=== PATIENT | female | born 1965 | race Caucasian/White ===

== ENCOUNTER 2025-09-23 13:23 | Inpatient (IN) | payer BC, SELFPAY ==
[2025-09-23 09:54] VITALS: BP 124/91
[2025-09-23 10:51] LABS: Hematocrit 46.2 % (37.0-47.0); Hemoglobin 15.9 g/dL (12.0-16.0); Mean Corp Hgb Conc. 34.4 g/dL (33.0-37.0); Mean Corpuscular Volume 90.4 fL (81.0-99.0); Nucleated Red Blood Cells % 0 %; Platelet Count 310 10^3/uL (130-400); Red Cell Dist. Width 13.5 % (11.5-14.5)
[2025-09-23 10:54] LABS: Urine Character Slightly Cloudy (Clear)
[2025-09-23 11:08] LABS: ALT (SGPT) 11 U/L (0-35); AST (SGOT) 13 U/L (14-36); Albumin 4.2 g/dl (3.5-5.0); Alkaline Phosphatase 111 U/L (38-126); Blood Urea Nitrogen 19 mg/dl (7-17); Calcium 10.0 mg/dl (8.4-10.2); Carbon Dioxide 22 mmol/L (22-30); Chloride 105 mmol/L (98-107); Glucose 120 mg/dl (70-99); Lipase 43 U/L (23-300); Potassium 4.2 mmol/L (3.5-5.1); Sodium 139 mmol/L (135-145); Total Protein 7.6 g/dl (6.3-8.2); eGFR > 60.00
[2025-09-23] MEDS: ZOFRAN 4 MG IV ×2 (11:17→19:46)
[2025-09-23] MEDS: NSS 1000 IV ×2 (11:17→15:07)
[2025-09-23] MEDS: MORPHINE SULFATE 4 MG IV (11:17)
--- NOTE | 2025-09-23 11:24 | ED.GENMED ---
History of Present Illness
General
Chief Complaint: Abdominal Pain
Time Seen by Provider: 09/23/25 10:51
History of Present Illness
History of Present Illness:
60-year-old female without significant past medical history presenting to the emergency department for abdominal pain. Patient reports symptoms for the past 5 days, with lower abdominal discomfort. Also notes some nausea and vomiting, as well as
loose stools. Recently started taking magnesium and stools have been orange in color, unsure if color is related to the magnesium. Reports history of diverticulitis, which occurred a year ago. Reports that symptoms feel similar to that episode,
however now worse. Denies any fever. Denies any history of abdominal surgeries. Denies additional acute medical complaints
Past History
Past History
ED Past Medical History: None; Negative CAD or CHF
Social History
Personal:
Living: with family
Phy Exam
Physical Exam
Physical Exam:
General: Well-appearing, no clinical signs of dehydration, nontoxic and in no acute distress
HEENT: protecting airway
Neck: appears supple
CV: Normal heart rate, regular rhythm
Resp: No accessory muscle use, no increased work of breathing, lungs clear to auscultation bilaterally
Abd: No distention, moderate discomfort on palpation to the lower abdomen with voluntary guarding, no rebound
Extremities: No deformities, no swelling
Neuro: alert, no focal neurologic deficit
: deferred
Rectal: deferred
Psych: Normal affect
Skin: Intact
Course
Orders/Labs/Results
Orders:
Orders
09/23/25 10:06
Complete Blood Count/With Diff Urgent
Comprehensive Metabolic Panel Urgent
Lipase Urgent
09/23/25 10:18
Urinalysis Reflex To Culture Urgent
Date Specimen was Collected: 09/23/25
Time Specimen was Collected: 09:59
Urine Microscopic Reflex Cult Urgent
Urine Culture Urgent
LIDIA Source: U
Specimen Description:
Date Specimen was Collected: 09/23/25
Time Specimen was Collected: 09:59
09/23/25 11:08
CT Abd/pelvis W Iv Cont Urgent
Comment:
Reason For Exam: lower abd pain, hx diverticulitis
0.9% Sodium Chloride 1000 ml [Nss] 1,000 ml IV BOLUS
Morphine Sulfate 4 mg IV NOW STA
Ondansetron Injectable [Zofran] 4 mg IV NOW STA
09/23/25 11:15
Lactic Acid Q4H
Comment: CANCEL 2nd LACTIC ACID IF 1st LACTIC ACID IS LESS THAN 2
09/23/25 12:46
CefTRIAXone [Rocephin] 1,000 mg IV NOW STA
MetroNIDAZOLE 500 MG/100 ML [Flagyl 500 mg] 100 ml IV NOW
09/23/25 15:15
Lactic Acid Q4H
Comment: CANCEL 2nd LACTIC ACID IF 1st LACTIC ACID IS LESS THAN 2
Abnormal Lab Results
09/23/25 09/23/25
10:06 10:18
WBC 19.4 H 10^3/uL
(4.8-10.8)
MCH 31.1 H pg
(27.0-31.0)
MPV 11.6 H fL
(7.4-10.4)
Abs Immat Gran (auto) 0.2 H 10^3/uL
(0-0.05)
Absolute Neuts (auto) 16.5 H 10^3/uL
(1.4-6.5)
Absolute Monos (auto) 1.3 H 10^3/uL
(0.1-0.6)
Immature Gran % 0.8 H %
(0-0.5)
Neutrophils % 85.1 H %
(42.2-75.2)
Lymphocytes % 6.7 L %
(20.5-51.1)
BUN 19 H mg/dl
(7-17)
Glucose 120 H mg/dl
(70-99)
AST 13 L U/L
(14-36)
Urine Ketones 3+ A
(Negative)
Ur Occult Blood Reflex 3+ A
(Negative)
Leukocyte Esterase Rfl 1+ A
(Negative)
Urine RBC 3-6 A /HPF
(0-2)
Urine Bacteria (Reflex) Many A
(Negative)
Urine Albumin (Reflex) 3+ A
(Neg - Trace)
09/23/25 10:06
09/23/25 10:06
Vital Signs
Initial and Last Documented VS:
Initial Vital Signs
Temp Pulse Resp BP Pulse Ox
97.7 F 106 20 124/91 96
09/23/25 09:54 09/23/25 09:54 09/23/25 09:54 09/23/25 09:54 09/23/25 09:54
Last Documented Vital Signs
Temp Pulse Resp BP Pulse Ox
97.7 F 94 20 139/84 96
09/23/25 09:54 09/23/25 11:25 09/23/25 11:25 09/23/25 11:25 09/23/25 11:29
MDM/Problems Addressed
MDM/Problems Addressed:
60-year-old female with prior history of diverticulitis presenting for lower abdominal pain. Vital signs on arrival are significant for mild tachycardia.
On exam, patient is in no acute distress, however does appear uncomfortable secondary to pain. Generalized tenderness to the lower abdomen with voluntary guarding, no rebound. Concern for acute diverticulitis, given prior history, with possible
perforation. Bowel obstruction is also consideration. Given discomfort, will start on morphine. Plan for CT imaging. Labs obtained prior to my assessment, with moderate leukocytosis. Will add on lactic acid.
12:50 -lactate is normal. CT is consistent with perforated diverticulitis. Starting broad-spectrum antibiotics. General surgery made aware, recommending hospital admission and they will see in consult. Will keep n.p.o.
*Pulse Oximetry
SaO2: 96
Oxygen Mode of Delivery: Room air
Patient hypoxic: no
*Critical Care Note
Total Time (30-74mins, 75-104mins- exclusive of procedures): Not Applicable
ED Attending Note
-
Portions of this chart may have been created with voice recognition software.� Occasional wrong word or��sound alike� substitutions may have occurred due to the inherent limitations of voice recognition software.
Discharge Plan
Departure
Prescriptions:
No Action
Metamucil Packet
1 packet PO DAILY
Referrals:
Tashi Restrepo DO [Family Provider, Family Practice]
Interventions
Interventions:
*General Assessment Last Done: 09/23/25 09:54
*Neglect/Abuse Screening Last Done: 09/23/25 11:26
*ED COVID-19 Vaccine History Last Done: 09/23/25 11:26
*ED Influenza Vaccine History Last Done: 09/23/25 11:26
[facility] Fall Risk Assessment Tool Last Done: 09/23/25 11:26
*Risk Screen - Suicide (C-SSRS) Last Done: 09/23/25 11:26
WX-Aqfbny-Irnfjhjnop Assessment Last Done: 09/23/25 11:28
Discharge Date and Time
Print Language: MALTESE
[2025-09-23 11:25] VITALS: BP 139/84
[2025-09-23 11:26] VITALS: BMI 42.4
[2025-09-23 11:29] LABS: Urine Squamous Cell >30 /LPF (Few)
[2025-09-23 11:30] LABS: Urine Urothelial Cell 0-2 /LPF (FEW)
--- NOTE | 2025-09-23 12:56 | HPS.HSE ---
Family Physician
-
Family Physician: Tashi Restrepo
Chief Complaint
-
Abdominal pain associate with nausea vomiting, loose stool
History of Present Illness
60-year-old female with past medical history for diverticulitis presented to us with lower abdominal pain for past 5 days. Also notes some nausea and vomiting, as well as loose stools. patient stated poor oral intake. Patient had a temp of 100.4.
she complained of chills. Denied headache, dizzy or syncope. Patient denied chest pain or short of breath. She denied trouble urinating. Denied dysuria hematuria.
CT with perforated diverticulitis. Patient received a dose of ceftriaxone, Flagyl, morphine, normal saline, Zofran in the ER. Admitting for further management
Medical History
Past Medical History
Past Medical History: Reports Other
Additional Past Medical History:
Diverticulitis, kidney stone
Past Surgical History: Reports None
Social History
Tobacco: Smoker (Half a pack a day)
Alcohol: Occasional
Drug: None
Living: With Family
Family History
Family History: Not pertinent
Allergies / Home Medications
Allergies reflects when Allergies were last updated in [employer].
Home Medications with original date entered in [employer]
Allergy/Medication List:
Allergies
Allergy/AdvReac Type Severity Reaction Status Date / Time
Penicillins Allergy Unknown Verified 09/23/25 09:54
sulfamethoxazole (From Allergy Rash Verified 09/23/25 09:54
Bactrim)
trimethoprim (From Bactrim) Allergy Rash Verified 09/23/25 09:54
Home Medications
psyllium 1 packet PO DAILY 09/23/25
Review of Systems
-
Constitutional: Reports No Symptoms
EENT: Reports No Symptoms
Respiratory: Reports No Symptoms
Cardiac: Reports No Symptoms
Abdomen/GI: Reports Abdominal Pain, Nausea, Vomiting and Diarrhea
: Reports No Symptoms
Musculoskeletal: Reports No Symptoms
Skin: Reports No Symptoms
Neurological: Reports No Symptoms
Endocrine: Reports No Symptoms
Hematologic/Lymphatic: Reports No Symptoms
Psych: Reports No Symptoms
Physical Exam
Vital Signs
Vital Signs
Temp Pulse Resp BP Pulse Ox
97.7 F 94 20 139/84 96
09/23/25 09:54 09/23/25 11:25 09/23/25 11:25 09/23/25 11:25 09/23/25 11:29
Physical Exam
General: Well Developed, Well Nourished and No Apparent Distress
HEENT: NormoCephalic, Moist mucous membranes and Atraumatic
Respiratory: Clear
Cardiac: S1/S2 and Regular Rhythm; No Murmur or Rub
GI: Soft, Non Tender, Non Distended and Normal Bowel Sounds; No Organomegaly
Rectal: Deferred by Provider
Musculoskeletal: No Clubbing, No Cyanosis and No Edema
Skin: No Rash
Neuro: AO x 3 and Nonfocal/grossly intact
Psych: Calm
Laboratory Results
-
09/23/25 10:06
09/23/25 10:06
Laboratory Results
Lactic Acid 1.0 mmol/L (0.7-2.0) 09/23/25 11:15
Total Bilirubin 0.8 mg/dl (0.2-1.3) 09/23/25 10:06
AST 13 U/L (14-36) L 09/23/25 10:06
ALT 11 U/L (0-35) 09/23/25 10:06
Alkaline Phosphatase 111 U/L (38-126) 09/23/25 10:06
Lipase 43 U/L (23-300) 09/23/25 10:06
Data Reviewed
-
CT Scan: Report Reviewed by me
Lab Data: Labs Reviewed by me
Impression/Plan
-
# Abdominal pain associate with nausea, vomiting, loose stools secondary to perforated sigmoid diverticulitis
- WBCs 19
- Flagyl and ceftriaxone continued
- General Surgery consulted
- Keep patient n.p.o.
- IV fluids continue hydration
- IV Dilaudid as needed for pain
- IV Zofran as needed for nausea vomiting
- CT abdomen pelvis with impression of Findings of acute perforated sigmoid diverticulitis with small volume free air underlying the right hemidiaphragm. Additionally extensive inflammatory changes along the sigmoid colon as well as a bilobed gas
and fluid containing collection measuring approximately 4.9 x 2.6 cm along the sigmoid colon extending towards the left pelvis/adnexa.There is a 9 mm complex cyst along the lower pole the right kidney which appears increased in size from prior. A
follow-up nonemergent renal ultrasound should BE considered.
#DVT prophylaxis
- SCDs
# CODE STATUS
-Full code
--- NOTE | 2025-09-23 13:02 | W.PN.UPDATE ---
Update Note
Progress Note Update
This note serves as an addendum to the H&P by coating technician ALEXIS�
Yolanda KISHORE�
HPI
6F HX uncomplicated diverticulitis 1 yr ago, no other chronic medical history seen at ER
- pw abdominal pain since Thursday with some nausea, vomiting, loose stools.
- No prior surgical history.
- stable VSS
pw generalized lower tenderness
- WBC is 19, normal lactate.
CT shows perforated sigmoid diverticulitis.
Has PCN allergy
Relevant VS
Temp Pulse Resp BP Pulse Ox
97.7 F 94 20 139/84 96
09/23/25 09:54 09/23/25 11:25 09/23/25 11:25 09/23/25 11:25 09/23/25 11:29
PE
Gen: Class III obesity , comfortable
HEENT: anicteric
Neck: supple
Lungs: CTA
Cor: RRR S1 S2
Abdomen:� obese , diffusely tender to palapaition
PRODUCT SAFETY LEAD: AAO3 , NFND
MS: no edema
Psych:Nl mood and affect
Relevant Data
09/23/25 09/23/25 09/23/25
10:06 10:18 11:15
WBC 19.4 H
Hgb 15.9
Plt Count 310
Carbon Dioxide 22
Creatinine 0.7
eGFR > 60.00
Lactic Acid 1.0
Urine Clarity Slightly cloudy
Urine RBC 3-6 A
Urine WBC (Reflex) 3-5
Ur Squamous Epith Cells >30
Urine Bacteria (Reflex) Many A
CT AP w IV contrast
- Findings of acute perforated sigmoid diverticulitis with small volume free air underlying the right hemidiaphragm.
- Additionally extensive inflammatory changes along the sigmoid colon as well as a bilobed gas and fluid containing collection measuring approximately 4.9 x 2.6 cm along the sigmoid colon extending towards the left pelvis/adnexa.
- There is a 9 mm complex cyst along the lower pole the right kidney which appears increased in size from prior. A follow-up nonemergent renal ultrasound should BE considered.
ASSESSMENT & PLAN
Acute perforated sigmoid diverticulitis
Collection 4.9 x 2.6 cm along the sigmoid colon extending towards the left pelvis/adnexa.
HX PCN allergy ( rash ) Bactrim ( tight throat )
- NPO and IVF
- IV LVQ in place of IV CFTX plus IV Flagyl
- PRN analgesia
- EKG to monitor QTc
- GS consulted
Class III Obesity
DVT Px: SCD
Full code
IP MS
[2025-09-23 13:11] VITALS: BP 140/86
[2025-09-23] MEDS: FLAGYL 500 MG 100 IV ×2 (13:13→19:46)
[2025-09-23] MEDS: ROCEPHIN 1000 MG IV (13:13)
--- NOTE | 2025-09-23 15:06 | CON.CRS ---
Addendum entered and electronically signed by Haider Barraza MD 09/23/25 18:05:
Patient seen and examined independently of nurse practitioner. Agree with documented consultation note with additions noted here.
HPI: 60-year-old female with previous history of diverticulitis in April 2023 and mild recurrent flare since then who was in her usual baseline state of health until 4 to 5 days ago when she began developing lower abdominal pain. She had associated
anorexia and began fasting other than liquids. Her pain was relatively stable for the first 48 hours but 2 days ago it acutely worsened and became more generalized in nature as well as localizing more severe in the left lower quadrant and
suprapubic area. She has continued with anorexia and even had intermittent vomiting. She has been passing some loose stools with the last bowel movement yesterday. Minimal flatus today and no further bowel movements.
Patient reports some relief with pain medicine administered in the emergency department but required a second dose after being transported to her hospital room. She is currently reporting discomfort more than pain. Continued anorexia. No vomiting
today.
Past medical history otherwise only notable for history of kidney stone and obesity with BMI of 37
No past abdominal surgical history. No prior history of colonoscopy.
AF -hypertension, low-grade sinus tachycardia
NAD AAO x 3 pleasant and participatory for history taking, generally appears comfortable during our conversation and able to move in bed for examination
ABD: Soft, obese, no significant distention, there is generalized tenderness but guarding/rebound on palpation is only present in the suprapubic and left lower quadrant region. There is no significant percussion tenderness. Palpation in the upper
abdomen with referred pain to the left lower quadrant and suprapubic area.
CT abdomen/pelvis images personally reviewed as well as radiologist report. Sigmoid wall thickening with associated inflammatory changes. Extraluminal air adjacent to the mid sigmoid colon and left ovary as well as left side of the uterus. A few
isolated small foci of extraluminal air in the right subdiaphragmatic space.
Assessment/plan: 60-year-old female with sigmoid diverticulitis complicated by perforation and localized peritonitis.
Reviewed with patient indications for consideration of urgent operative intervention versus close monitoring with supportive care, IV antibiotics and serial abdominal examinations understanding that if there is any progression that surgery would
more definitively be necessary. We discussed the risks and benefits of both approaches. After our discussions we will continue with current medical supportive care with the understanding of the low threshold to potentially need surgical
intervention.
Will follow
Continue Levaquin Flagyl
Repeat labs tomorrow morning
Original Note:
Consultation
-
Date/Time Consultation Performed: 09/23/25 1500
Medical History
-
Chief Complaint: abdominal pain
History of Present Illness:
This is a 60 yo female with a h/o diverticulitis in April of 2023 which was treated with ABX by the ED who presents with similar pain x 4-5 days. She notes that since her prior attack, she has had 4 episodes of mild but similar pain which was self
limiting and resolved without antibiotics. She has had no prior colonoscopies. She notes that since onset of symptoms, she has had heartburn and belching and did have a few episodes of bilious emesis proceeded by nausea. She has been eating and
drinking very little and was not urinating much at home. She has felt chills and sweats for the last 3 days and did note a fever 2 days ago of just over 100. She has been passing gas and some loose stools/material rectally. She notes pain improved
after analgesics in the ED and was able to ambulate to the bathroom to void. Initially she felt her pain was everywhere but since receiving analgesics, it's now more localized to the mid to left lower abdomen. On exam, there is bilateral lower
quadrant tenderness and suprapubic tenderness present.
Past Medical History
Past Medical History: Diverticulitis and Other (renal stone, morbid obesity)
Past Surgical History: Other (breast lumpectomy (benign))
Social History
Tobacco: Smoker (10/08-10/06 ppd)
Alcohol: Occasional
Living: With Family
Family History
Family History: Reviewed & Not Pertinent and Cancer (denies colon ca history)
Allergies / Home Medications
Allergy/AdvReac Type Severity Reaction Status Date / Time
Penicillins Allergy Unknown Verified 09/23/25 09:54
sulfamethoxazole (From Allergy Rash Verified 09/23/25 09:54
Bactrim)
trimethoprim (From Bactrim) Allergy Rash Verified 09/23/25 09:54
�Medication �Instructions �Recorded �Confirmed �Type
psyllium 1 packet PO DAILY 09/23/25 09/23/25 History
Review of Systems
-
History Source: Patient
All other systems: Negative unless noted
A 10 point review of systems was completed, and was negative except as per HPI.
Physical Exam
Vital Signs
Temp 97.7 F 09/23/25 09:54
Pulse 89 09/23/25 13:11
Resp Rate 18 09/23/25 13:11
Blood pressure 140/86 09/23/25 13:11
SaO2 95 09/23/25 13:11
09/22/25 09/23/25 09/24/25
06:59 06:59 06:59
Actual Weight 105 kg
Body Mass Index (BMI) 42.4
Lab Results / Allergies
09/23/25 10:06
09/23/25 10:06
WBC 19.4 10^3/uL (4.8-10.8) H 09/23/25 10:06
Hgb 15.9 g/dL (12.0-16.0) 09/23/25 10:06
Hct 46.2 % (37.0-47.0) 09/23/25 10:06
Plt Count 310 10^3/uL (130-400) 09/23/25 10:06
Abs Immat Gran (auto) 0.2 10^3/uL (0-0.05) H 09/23/25 10:06
Neutrophils % 85.1 % (42.2-75.2) H 09/23/25 10:06
Allergy/AdvReac Type Severity Reaction Status Date / Time
Penicillins Allergy Unknown Verified 09/23/25 09:54
sulfamethoxazole (From Allergy Rash Verified 09/23/25 09:54
Bactrim)
trimethoprim (From Bactrim) Allergy Rash Verified 09/23/25 09:54
Physical Exam
General: Other (flushed, rubbing abdomen but able to ambulate to bathroom)
HEENT: Normocephalic and Other (dry mm)
GI: Soft, Tender (significant to BLLQ, no rebound/rigidity/guarding) and Distended (mild)
Skin: Warm and Other (flushed)
Neuro: Awake, Alert and AO x 3
Psych: Calm
Data Reviewed
-
CT Scan: Image Personally Visualized and interpreted, Report Reviewed by me, Discussed with Physician and Discussed with Patient
Labs: Labs Reviewed by me, Discussed with Physician and Discussed with Patient
Old Records: Reviewed
Assessment / Plan
-
60 yo female with a h/o diverticulitis and no prior colonoscopy presenting through the ED with 4-5 days of abdominal pain with poor appetite and 3 days of subjective fevers, dyspepsia and nausea with occasional vomiting. Afebrile in the ED, no
tachycardia, BP elevated. Leukocytosis with WBC of 19.4. Lactic acid normal. Bun/Cr ratio consistent with mild dehydration. CT imaging consistent with acute diverticulitis with perforation. There is a small amount of air at the right hemidiaphragm.
Inflammatory changes present along the sigmoid colon with collection of gas/fluid 4.9x2.6 along the sigmoid colon near the left adnexa. On exam, she has significant BLLQ tenderness without rebound/rigidity/guarding.
Plan:
Keep NPO for bowel rest
C/W ABX with levo/Flagyl
IVF while NPO
Medical management as per primary team
Discussed that emergent surgery would likely entail exploratory laparotomy and likely a colostomy. Given current exam, VS and labs, will hold off on emergent surgery at this time but will follow closely as she may require this admission if no
improvement. Reached out to IR provider harmonica maker to review imaging and determine if collection near sigmoid colon would be amenable to IR drainage.
[2025-09-23 15:09] VITALS: BP 157/83
--- NOTE | 2025-09-23 15:30 | CM ---
Chart reviewed and spoke with pt at ED bedside
Lives with spouse, dtr and 3 yo grandtr 2 [address]
Independent with ADLs and ambulation
no DME
PCP T[facility] in [place]
no hx of VN nor SNF
DCP is to go home
CM will continue to follow up for any dcp needs
[2025-09-23] MEDS: DILAUDID 0.5 MG IV (16:02)
[2025-09-23 16:05] VITALS: BP 176/103; BMI 37.0
[2025-09-23] MEDS: LEVAQUIN 150 IV (16:17)
[2025-09-23] MEDS: DILAUDID 1 MG IV (19:46)
[2025-09-23 23:10] VITALS: BP 153/79
[2025-09-24] MEDS: DILAUDID 0.5 MG IV ×4 (00:08→22:02)
[2025-09-24] MEDS: NSS 1000 IV ×3 (02:59→14:26)
[2025-09-24 06:41] LABS: Hematocrit 40.1 % (37.0-47.0); Hemoglobin 13.3 g/dL (12.0-16.0); Mean Corp Hgb Conc. 33.2 g/dL (33.0-37.0); Mean Corpuscular Volume 91.1 fL (81.0-99.0); Platelet Count 273 10^3/uL (130-400); Red Cell Dist. Width 13.8 % (11.5-14.5)
[2025-09-24 06:58] LABS: Blood Urea Nitrogen 18 mg/dl (7-17); Calcium 9.0 mg/dl (8.4-10.2); Carbon Dioxide 23 mmol/L (22-30); Chloride 110 mmol/L (98-107); Estimated Creatinine Clearance 122 ml/min; Glucose 101 mg/dl (70-99); Potassium 4.0 mmol/L (3.5-5.1); Sodium 141 mmol/L (135-145); eGFR > 60.00
[2025-09-24 07:00] VITALS: BP 141/75
--- NOTE | 2025-09-24 07:25 | W.PN.HOSP.TC ---
Addendum entered and electronically signed by Yazmin Holman MD 09/24/25 15:40:
I saw and evaluated the patient independently. I reviewed and discussed the resident�s note and agree with findings and plan as documented by Dr. Young.
GENERAL: well developed, well nourished, obese female in some distress
HEENT: NC/AT
HEART: regular rate and rhythm, +S1, +S2, not tachycardic
LUNGS : clear to auscultation bilaterally
ABDOM: soft, tender bilateral lower quadrants with guarding, nondistended, + bowel sounds
EXT: no cyanosis, clubbing, or edema
NEUROLOGIC: grossly intact
acute sigmoid diverticulitis complicated by perforation and localized peritonitis (does not meet sepsis criteria by new guidelines)--with associated pain, n/v--follow leukocytes--cont levoquin/flagyl--NPO/IVF--follow cultures--appec surgery--pain
meds--antiemetics--repeat CT tomorrow
Renal Cyst on CT- Will need outpatient follow-up renal ultrasound
DVT prophylaxis- SCDs
CODE STATUS--Full code
Original Note:
Today's Communication/Plan
-
Continue with IV antibiotics
Continue IV fluid
Labs in the morning
?? Repeat CT imaging per surgery tomorrow
Assessment / Plan
Assessment / Plan
60 yo female with a h/o diverticulitis and no prior colonoscopy presented with 4-5 days of abdominal pain, poor appetite and 3 days of subjective fevers, dyspepsia and nausea with occasional vomiting.
# sigmoid diverticulitis complicated by perforation and localized peritonitis
#Abdominal pain associate with nausea, vomiting
- WBCs 18(slight improvement since admission)
- Continue with levofloxacin and metronidazole for now
- General Surgery following
- Keep patient n.p.o. ; allow ice chips
- Continue with IV fluids for hydration for now
- IV Dilaudid as needed for pain ; will premedicate with IV Benadryl before Dilaudid dose
- IV Zofran as needed for nausea vomiting
- Patient will need reevaluation if develop any sudden worsening of current pain or any new symptoms
- Probable repeat CT tomorrow pending the clinical course; updated CT will direct the treatment at that point
# Renal Cyst on CT
- Will need outpatient follow-up renal ultrasound
CT abdomen pelvis 09/23/2025
Findings of acute perforated sigmoid diverticulitis with small volume free air underlying the right hemidiaphragm.
Additionally extensive inflammatory changes along the sigmoid colon as well as a bilobed gas and fluid containing collection measuring approximately 4.9 x 2.6 cm along the sigmoid colon extending towards the left pelvis/adnexa.
There is a 9 mm complex cyst along the lower pole the right kidney which appears increased in size from prior. A follow-up nonemergent renal ultrasound should BE considered.
#DVT prophylaxis
- SCDs
# CODE STATUS
-Full code
Anticipated Discharge: 24 - 48 hours
Subjective/Interval History
-
Date of Service: September 24, 2025
AFVSS. Patient continues to have lower abdominal pain however it improved with IV Dilaudid. She also informed me that there is mild itching after the IV Dilaudid
Objective Data
-
Labs:
Laboratory Results
09/24/25
05:35
WBC 18.0 H
Hgb 13.3
Hct 40.1
Plt Count 273
Sodium 141
Potassium 4.0
Chloride 110 H
Carbon Dioxide 23
BUN 18 H
Creatinine 0.6
Glucose 101 H
Calcium 9.0
Vital Signs:
Vital Signs
Temp Pulse Resp BP Pulse Ox
99.2 F 83 18 153/79 94
09/23/25 23:10 09/23/25 23:10 09/23/25 23:10 09/23/25 23:10 09/23/25 23:10
Review of Systems
-
History Source: Patient
Constitutional: Denies Fever
Respiratory: Reports No Symptoms
Cardiac: Reports No Symptoms
Abdomen/GI: Reports Abdominal Pain and Nausea; Denies Vomiting, Diarrhea or Constipated
Genitourinary: Reports No Symptoms
Neuro: Reports No Symptoms
Physical Exam
-
General: Well Nourished and Comfortable
HEENT: Normocephalic
Respiratory: Clear to Auscultation and Non Labored Respirations
Cardiac: Regular Rhythm
GI: Soft, Nondistended and Tender
Genito-urinary: No Costovertebral Tender
Skin: Warm
Neuro: Awake, Alert and Oriented
Psych: Calm
Data Reviewed
-
CT Scan: Report Reviewed by me, Discussed with Physician and Discussed with Patient
Labs: Labs Reviewed by me, Discussed with Physician and Discussed with Patient
[2025-09-24] MEDS: BENADRYL 12.5 MG IV ×3 (08:13→22:04)
[2025-09-24] MEDS: DILAUDID 1 MG IV ×3 (08:13→18:34)
[2025-09-24] MEDS: FLAGYL 500 MG 100 IV ×2 (08:14→20:31)
--- NOTE | 2025-09-24 08:47 | W.PN.GS2 ---
Today's Communication / Plan
-
`
Assessment / Plan
-
Assessment: 60-year-old female with sigmoid diverticulitis complicated by probable contained perforation and localized peritonitis.
Small volume remote free air in the right subdiaphragmatic space seen on CT imaging 09/23. No organizing abscess/fluid collection at initial imaging.
Afebrile, Tmax 99.2 since admission.
Initial low-grade tachycardia has improved with heart rate now in the 80s
Normotensive
Abdominal examination still with localized lower abdominal peritonitis, slightly improved in the upper abdomen without no rebound/guarding/percussion tenderness.
Clinically stable; without much improvement nor deterioration.
Reiterated our discussions yesterday evening regarding the 2 treatment options of definitive surgical management which would entail sigmoidectomy with end colostomy versus continued attempts at nonoperative management understanding that she is right
on the border of 'needing' potential urgent operative intervention understanding the potential risks for progression which could lead to abscess, sepsis, generalized peritonitis.
Plan: Continue n.p.o. except ice chips for comfort
Levaquin/Flagyl for broad-spectrum IV antibiotic coverage
Monitor fever curve/vital signs and abdominal examination/subjective pain
Probable repeat CT imaging in in 24 to 48 hours pending clinical course
Any of the patient's concerns or questions were confirmed to be fully addressed. Specifically discussed the potential lengthy treatment course for complicated diverticular disease as well as ongoing potential need for surgery as outlined above.
Subjective Data
-
Date of Service: September 24, 2025
Patient seen and examined this a.m. Hospitalist resident at bedside as well.
Patient reports continued lower abdominal pain constant but worse with movement. Able to be alleviated with narcotic pain medication but requiring relative consistent dosing.
Pain may be slightly improved, but not more severe than yesterday afternoon/evening.
No appetite, no nausea or vomiting
Up out of bed to void, she is passing flatus intermittently, no bowel movements overnight
Objective Data
-
Intake and Output
09/23/25 09/24/25 09/25/25
06:59 06:59 06:59
Other:
Number of approximated MODERATE 1
amounts of urine
Vital Signs
Temp Pulse Resp BP Pulse Ox
98.5 F 84 16 141/75 92
09/24/25 07:00 09/24/25 07:00 09/24/25 07:00 09/24/25 07:00 09/24/25 07:00
Lab Results
09/24/25 05:35
09/24/25 05:35
Calcium 9.0 mg/dl (8.4-10.2) 09/24/25 05:35
Total Bilirubin 0.8 mg/dl (0.2-1.3) 09/23/25 10:06
AST 13 U/L (14-36) L 09/23/25 10:06
ALT 11 U/L (0-35) 09/23/25 10:06
Alkaline Phosphatase 111 U/L (38-126) 09/23/25 10:06
Total Protein 7.6 g/dl (6.3-8.2) 09/23/25 10:06
Albumin 4.2 g/dl (3.5-5.0) 09/23/25 10:06
Physical Exam
-
NAD AAO x 3; generally does not appear toxic and when lying still in bed comfortable during our evaluation
ABD: Soft, obese, less referred tenderness during palpation of the upper abdomen today. Continued guarding and rebound in the infraumbilical abdomen bilaterally and centrally. No percussion tenderness in the upper abdomen. Localizing percussion
tenderness to the suprapubic area.
[2025-09-24 15:00] VITALS: BP 135/65
[2025-09-24] MEDS: LEVAQUIN 150 IV (16:33)
[2025-09-24 23:25] VITALS: BP 152/78
[2025-09-25] MEDS: DILAUDID 1 MG IV ×2 (00:36→06:03)
[2025-09-25] MEDS: NSS 1000 IV ×2 (02:32→10:37)
[2025-09-25] MEDS: BENADRYL 12.5 MG IV ×2 (03:27→09:05)
[2025-09-25] MEDS: DILAUDID 0.5 MG IV ×3 (03:28→16:57)
[2025-09-25 07:00] VITALS: BP 159/87
[2025-09-25] MEDS: FLAGYL 500 MG 100 IV ×2 (07:16→20:03)
--- NOTE | 2025-09-25 07:24 | W.PN.HOSP.TC ---
Addendum entered and electronically signed by Darin Conner MD 09/25/25 15:06:
I saw and evaluated the patient. I reviewed the resident�s note and agree with findings and plan as documented in the resident�s note.
1. Perforated sigmoid diverticulitis -free air noted in CT scan. Patient have previous 1 episode of sigmoid diverticulitis. Patient is n.p.o. on IV fluid and IV levofloxacin/Flagyl. Surgery following and planning to do repeat CTAP and will plan
further depending on findings. Patient continues to have some pain discomfort, medication adjusted to regimen of oxycodone and Dilaudid
2. Right renal complex cyst -will require follow-up with urology in office. will need surveillance us imaging.
Patient at high risk of further complication with perforated viscus. Will require close monitoring.
Original Note:
Today's Communication/Plan
-
Defer the timing of repeat CT to surgery
Add oral oxycodone for moderate and severe pain
Assessment / Plan
Assessment / Plan
60 yo female with a h/o diverticulitis and no prior colonoscopy presented with 4-5 days of abdominal pain, poor appetite and 3 days of subjective fevers, dyspepsia and nausea with occasional vomiting.
# sigmoid diverticulitis complicated by perforation and localized peritonitis
#Abdominal pain associate with nausea, vomiting
- WBCs 15(trending down)
- Continue with levofloxacin and metronidazole for now
- General Surgery following
- Keep patient n.p.o. ; allow ice chips ; okay to take oral medications by surgery; will start oral pain medication
- Continue with IV fluids for hydration for now
- IV Dilaudid as needed for breakthrough pain pain ; will premedicate with IV Benadryl before Dilaudid dose
- IV Zofran as needed for nausea vomiting
- Patient will need reevaluation if develop any sudden worsening of current pain or any new symptoms
- Probable repeat CT tomorrow pending the clinical course; updated CT will direct the treatment at that point
# Renal Cyst on CT
- Will need outpatient follow-up renal ultrasound
CT abdomen pelvis 09/23/2025
Findings of acute perforated sigmoid diverticulitis with small volume free air underlying the right hemidiaphragm.
Additionally extensive inflammatory changes along the sigmoid colon as well as a bilobed gas and fluid containing collection measuring approximately 4.9 x 2.6 cm along the sigmoid colon extending towards the left pelvis/adnexa.
There is a 9 mm complex cyst along the lower pole the right kidney which appears increased in size from prior. A follow-up nonemergent renal ultrasound should BE considered.
#DVT prophylaxis
- SCDs
# CODE STATUS
-Full code
Anticipated Discharge: 24 - 48 hours
Subjective/Interval History
-
Date of Service: September 25, 2025
Afebrile. Mild hypertensive. Offers no new complaints.
Objective Data
-
Labs:
Laboratory Results
09/25/25
06:59
WBC Pending
Hgb Pending
Hct Pending
Plt Count Pending
Sodium Pending
Potassium Pending
Chloride Pending
Carbon Dioxide Pending
BUN Pending
Creatinine Pending
Glucose Pending
Calcium Pending
Vital Signs:
Vital Signs
Temp Pulse Resp BP Pulse Ox
98.6 F 82 18 152/78 92
09/24/25 23:25 09/24/25 23:25 09/24/25 23:25 09/24/25 23:25 09/24/25 23:25
I&O
09/24/25 09/25/25 09/26/25
06:59 06:59 06:59
Intake Total 1899
Balance 1899
Review of Systems
-
History Source: Patient
Constitutional: Denies Fever
Respiratory: Reports No Symptoms
Cardiac: Reports No Symptoms
Abdomen/GI: Reports Abdominal Pain; Denies Nausea, Vomiting, Diarrhea or Constipated
Genitourinary: Reports No Symptoms
Neuro: Reports No Symptoms
Physical Exam
-
General: Well Nourished and Comfortable
HEENT: Normocephalic
Respiratory: Clear to Auscultation and Non Labored Respirations
Cardiac: Regular Rhythm
GI: Soft, Nondistended and Tender (Overall improved)
Genito-urinary: No Costovertebral Tender
Skin: Warm
Neuro: Awake, Alert and Oriented
Psych: Calm
Data Reviewed
-
Labs: Labs Reviewed by me, Discussed with Physician and Discussed with Patient
[2025-09-25 07:51] LABS: Hematocrit 39.3 % (37.0-47.0); Hemoglobin 12.9 g/dL (12.0-16.0); Mean Corp Hgb Conc. 32.8 g/dL (33.0-37.0); Mean Corpuscular Volume 91.6 fL (81.0-99.0); Platelet Count 290 10^3/uL (130-400); Red Cell Dist. Width 13.8 % (11.5-14.5)
[2025-09-25 08:56] LABS: Blood Urea Nitrogen 16 mg/dl (7-17); Calcium 8.8 mg/dl (8.4-10.2); Carbon Dioxide 22 mmol/L (22-30); Chloride 109 mmol/L (98-107); Estimated Creatinine Clearance 122 ml/min; Glucose 98 mg/dl (70-99); Potassium 3.6 mmol/L (3.5-5.1); Sodium 141 mmol/L (135-145); eGFR > 60.00
--- NOTE | 2025-09-25 12:26 | W.PN.GS2 ---
Today's Communication / Plan
-
Continue sips of clears.
Continue nonoperative management of diverticulitis with IV antibiotics.
Assessment / Plan
-
Assessment: 60-year-old female with sigmoid diverticulitis complicated by probable contained perforation and localized peritonitis.
Small volume remote free air in the right subdiaphragmatic space seen on CT imaging 09/23. No organizing abscess/fluid collection at initial imaging.
Afebrile, Tmax 99.2 since admission.
Initial low-grade tachycardia has improved with heart rate now in the 80s
Normotensive
Abdominal examination still with localized lower abdominal peritonitis, slightly improved in the upper abdomen without no rebound/guarding/percussion tenderness.
Clinically stable; without much improvement nor deterioration.
Reiterated our discussions yesterday evening regarding the 2 treatment options of definitive surgical management which would entail sigmoidectomy with end colostomy versus continued attempts at nonoperative management understanding that she is right
on the border of 'needing' potential urgent operative intervention understanding the potential risks for progression which could lead to abscess, sepsis, generalized peritonitis.
Plan: Continue n.p.o., okay for meds and sips of clears
Levaquin/Flagyl for broad-spectrum IV antibiotic coverage
Monitor fever curve/vital signs and abdominal examination/subjective pain
Probable repeat CT imaging in in 24 hours pending clinical course
Any of the patient's concerns or questions were confirmed to be fully addressed. Specifically discussed the potential lengthy treatment course for complicated diverticular disease as well as ongoing potential need for surgery as outlined above.
Time Spent
Total Time Spent with Patient (in minutes): 20
Subjective Data
-
Date of Service: September 25, 2025
Interval Events:
No acute events overnight. Slept well. Pain Controlled. Denies Nausea/Vomiting, -bowel function.
Objective Data
-
Intake and Output
09/24/25 09/25/25 09/26/25
06:59 06:59 06:59
Intake Total 1899
Balance 1899
Intake:
Oral fluids 120 / 120
IV fluids (Total) 1679
IV piggybacks 100 / 100
Other:
Number of approximated MODERATE 1 2
amounts of urine
Vital Signs
Temp Pulse Resp BP Pulse Ox
98.3 F 84 16 159/87 95
09/25/25 07:00 09/25/25 07:00 09/25/25 07:00 09/25/25 07:00 09/25/25 07:00
Lab Results
09/25/25 06:59
09/25/25 06:59
Calcium 8.8 mg/dl (8.4-10.2) 09/25/25 06:59
Total Bilirubin 0.8 mg/dl (0.2-1.3) 09/23/25 10:06
AST 13 U/L (14-36) L 09/23/25 10:06
ALT 11 U/L (0-35) 09/23/25 10:06
Alkaline Phosphatase 111 U/L (38-126) 09/23/25 10:06
Total Protein 7.6 g/dl (6.3-8.2) 09/23/25 10:06
Albumin 4.2 g/dl (3.5-5.0) 09/23/25 10:06
Physical Exam
-
GENERAL/NEURO: Awake, Alert, no distress
CHEST: Unlabored breathing on RA
ABDOMEN: Soft, obese, tender to palpation in the left lower quadrant, nondistended.
Patient has a retana catheter: No
Patient has a central line: No
[2025-09-25] MEDS: ROXICODONE 10 MG PO ×2 (13:29→22:18)
[2025-09-25 15:00] VITALS: BP 154/77
--- NOTE | 2025-09-25 16:09 | CM ---
Chart reviewed. Care ongoing
IV abx for diverticulitis. NPO. Pain management
Gen surg following
Plan: Home, no needs at this time
[2025-09-25] MEDS: LEVAQUIN 150 IV (16:25)
[2025-09-25] MEDS: ZOFRAN 4 MG IV (20:10)
--- NOTE | 2025-09-25 22:57 | VATNOTE ---
Unsuccessful x2 attempts to place new PIV. Other VAT RN to attempt.
[2025-09-25 22:58] VITALS: BP 173/101
[2025-09-26] VITALS (9 sets, daily range): BP systolic 72–171; BP diastolic 78–101; BMI 37.0
[2025-09-26] MEDS: NSS 1000 IV (05:01)
[2025-09-26] MEDS: ROXICODONE 10 MG PO ×3 (06:24→20:01)
--- NOTE | 2025-09-26 07:16 | W.PN.HOSP.TC ---
Today's Communication/Plan
-
continue pain mgmt
repeat CT abd pelvis with iv and oral today
continue empiric abx
Assessment / Plan
Assessment / Plan
60 yo female with a h/o diverticulitis and no prior colonoscopy presented with 4-5 days of abdominal pain, poor appetite and 3 days of subjective fevers, dyspepsia and nausea with occasional vomiting.
# sigmoid diverticulitis complicated by perforation and localized peritonitis
#Abdominal pain associate with nausea, vomiting
- WBCs stable around 15
- Continue with levofloxacin and metronidazole for now
- General Surgery following
- Keep patient n.p.o. ; allow sips of clear ;allow oral meds
- Continue with IV fluids for hydration for now
- IV Dilaudid as needed for breakthrough pain pain ; will premedicate with IV Benadryl before Dilaudid dose
- IV Zofran as needed for nausea vomiting
- Patient will need reevaluation if develop any sudden worsening of current pain or any new symptoms
- Repeat CT today; updated CT will direct the treatment at that point
# Renal Cyst on CT
- Will need outpatient follow-up renal ultrasound
CT abdomen pelvis 09/23/2025
Findings of acute perforated sigmoid diverticulitis with small volume free air underlying the right hemidiaphragm.
Additionally extensive inflammatory changes along the sigmoid colon as well as a bilobed gas and fluid containing collection measuring approximately 4.9 x 2.6 cm along the sigmoid colon extending towards the left pelvis/adnexa.
There is a 9 mm complex cyst along the lower pole the right kidney which appears increased in size from prior. A follow-up nonemergent renal ultrasound should BE considered.
#DVT prophylaxis
- SCDs
# CODE STATUS
-Full code
Anticipated Discharge: 24 - 48 hours
Subjective/Interval History
-
Date of Service: September 26, 2025
AFVSS. reports that her pain is better controlled with oxycodone tablets
Objective Data
-
Labs:
Laboratory Results
09/26/25
06:49
WBC Pending
Hgb Pending
Hct Pending
Plt Count Pending
Sodium Pending
Potassium Pending
Chloride Pending
Carbon Dioxide Pending
BUN Pending
Creatinine Pending
Glucose Pending
Calcium Pending
Vital Signs:
Vital Signs
Temp Pulse Resp BP Pulse Ox
99.3 F 88 18 173/101 97
09/25/25 22:58 09/25/25 22:58 09/25/25 22:58 09/25/25 22:58 09/25/25 22:58
I&O
09/25/25 09/26/25 09/27/25
06:59 06:59 06:59
Intake Total 1899
Balance 1899
Review of Systems
-
History Source: Patient
Constitutional: Denies Fever
Respiratory: Reports No Symptoms
Cardiac: Reports No Symptoms
Abdomen/GI: Reports Abdominal Pain; Denies Nausea, Vomiting, Diarrhea or Constipated
Genitourinary: Reports No Symptoms
Neuro: Reports No Symptoms
Physical Exam
-
General: Well Nourished and Comfortable
HEENT: Normocephalic
Respiratory: Clear to Auscultation and Non Labored Respirations
Cardiac: Regular Rhythm
GI: Soft, Nondistended and Tender (Overall improved)
Genito-urinary: No Costovertebral Tender
Skin: Warm
Neuro: Awake, Alert and Oriented
Psych: Calm
Data Reviewed
-
Labs: Labs Reviewed by me, Discussed with Physician and Discussed with Patient
[2025-09-26 08:00] LABS: Hematocrit 39.3 % (37.0-47.0); Hemoglobin 12.9 g/dL (12.0-16.0); Mean Corp Hgb Conc. 32.8 g/dL (33.0-37.0); Mean Corpuscular Volume 92.3 fL (81.0-99.0); Platelet Count 302 10^3/uL (130-400); Red Cell Dist. Width 13.6 % (11.5-14.5)
[2025-09-26 08:26] LABS: Blood Urea Nitrogen 16 mg/dl (7-17); Calcium 8.9 mg/dl (8.4-10.2); Carbon Dioxide 26 mmol/L (22-30); Chloride 106 mmol/L (98-107); Estimated Creatinine Clearance 122 ml/min; Glucose 86 mg/dl (70-99); Potassium 3.7 mmol/L (3.5-5.1); Sodium 140 mmol/L (135-145); eGFR > 60.00
[2025-09-26] MEDS: OMNIPAQUE 50 ML PO (08:32)
[2025-09-26] MEDS: FLAGYL 500 MG 100 IV ×2 (08:32→20:01)
[2025-09-26] MEDS: ROXICODONE 5 MG PO (10:21)
--- NOTE | 2025-09-26 10:58 | W.PN.GS2 ---
Today's Communication / Plan
-
CT scan today
Assessment / Plan
-
Assessment: 60-year-old female with sigmoid diverticulitis complicated by probable contained perforation and localized peritonitis.
Small volume remote free air in the right subdiaphragmatic space seen on CT imaging 09/23. No organizing abscess/fluid collection at initial imaging. She is clinically improved on IV antibiotics.
Repeat CT abdomen pelvis obtained today
On my review there is now a collection in the left lower quadrant which appears amenable to IR drainage.
IR consulted for possible drainage procedure.
Okay for diet postprocedure.
Continue IV antibiotics
Patient agreeable to plan of care above.
Time Spent
Total Time Spent with Patient (in minutes): 20
Subjective Data
-
Date of Service: September 26, 2025
Interval Events:
No acute events overnight. Slept well. Pain Controlled/improved. Denies Nausea/Vomiting, +bowel function
Objective Data
-
Intake and Output
09/25/25 09/26/25 09/27/25
06:59 06:59 06:59
Intake Total 1900 / 1900
Balance 1900 / 1900
Intake:
Oral fluids 120 / 120
IV fluids (Total) 1680 / 1680
IV piggybacks 100 / 100
Other:
Number of approximated MODERATE 2 2
amounts of urine
Vital Signs
Temp Pulse Resp BP Pulse Ox
98.2 F 79 18 143/80 93
09/26/25 07:00 09/26/25 07:00 09/26/25 07:00 09/26/25 07:00 09/26/25 07:00
Lab Results
09/26/25 06:49
09/26/25 06:49
Calcium 8.9 mg/dl (8.4-10.2) 09/26/25 06:49
Total Bilirubin 0.8 mg/dl (0.2-1.3) 09/23/25 10:06
AST 13 U/L (14-36) L 09/23/25 10:06
ALT 11 U/L (0-35) 09/23/25 10:06
Alkaline Phosphatase 111 U/L (38-126) 09/23/25 10:06
Total Protein 7.6 g/dl (6.3-8.2) 09/23/25 10:06
Albumin 4.2 g/dl (3.5-5.0) 09/23/25 10:06
Physical Exam
-
GENERAL/NEURO: Awake, Alert, no distress
CHEST: Unlabored breathing on RA
ABDOMEN: Soft, focally tender in the left lower quadrant, improved versus yesterday, obese, nondistended
Patient has a retana catheter: No
Patient has a central line: No
[2025-09-26] MEDS: ZOFRAN 4 MG IV (15:23)
[2025-09-26] MEDS: LEVAQUIN 150 IV (15:24)
[2025-09-26] MEDS: NSS IV (16:49)
[2025-09-27] MEDS: NSS 1000 IV ×2 (00:25)
[2025-09-27] MEDS: ZOFRAN 4 MG IV ×2 (02:57→21:41)
[2025-09-27] MEDS: ROXICODONE 10 MG PO ×2 (02:57→08:14)
[2025-09-27 07:00] VITALS: BP 149/81
--- NOTE | 2025-09-27 07:09 | W.PN.HOSP.TC ---
Today's Communication/Plan
-
full liquids
Assessment / Plan
Assessment / Plan
60 yo female with a h/o diverticulitis and no prior colonoscopy presented with 4-5 days of abdominal pain, poor appetite and 3 days of subjective fevers, dyspepsia and nausea with occasional vomiting.
# sigmoid diverticulitis complicated by perforation and localized peritonitis
#Abdominal pain associate with nausea, vomiting
- WBCs stable around 15
- Continue with levofloxacin and metronidazole for now
- General Surgery following
- Advance diet to full liquids
- Continue with IV fluids for hydration for now
- IV Dilaudid as needed for breakthrough pain pain ; will premedicate with IV Benadryl before Dilaudid dose
- IV Zofran as needed for nausea vomiting
- Patient will need reevaluation if develop any sudden worsening of current pain or any new symptoms
- Repeat CT abnormal focal fluid collection suggesting contained perforation/abscess slightly increased in length,
- Patient is s/p drainage with IR
# Renal Cyst on CT
- Will need outpatient follow-up renal ultrasound
CT abdomen pelvis 09/23/2025
Findings of acute perforated sigmoid diverticulitis with small volume free air underlying the right hemidiaphragm.
Additionally extensive inflammatory changes along the sigmoid colon as well as a bilobed gas and fluid containing collection measuring approximately 4.9 x 2.6 cm along the sigmoid colon extending towards the left pelvis/adnexa.
There is a 9 mm complex cyst along the lower pole the right kidney which appears increased in size from prior. A follow-up nonemergent renal ultrasound should BE considered.
CT abd pevis 09/26/25:
IMPRESSION:
Inflammatory changes/stranding associated with proximal sigmoid diverticulitis improved in comparison to recent prior study. HOWEVER, accompanying crescentic abnormal focal fluid collection suggesting contained perforation/abscess slightly increased
in length, as detailed above. Cannot exclude involvement of the left adnexa. No free air.
Stable subcentimeter complex cystic lesion along the lower pole the right kidney, indeterminate.
#DVT prophylaxis
- SCDs
# CODE STATUS
-Full code
Anticipated Discharge: 24 - 48 hours
Subjective/Interval History
-
Date of Service: September 27, 2025
AFVSS. Reports that she is feeling better after IR drainage
Objective Data
-
Vital Signs:
Vital Signs
Temp Pulse Resp BP Pulse Ox
98.8 F 80 18 139/78 95
09/26/25 23:02 09/26/25 23:02 09/26/25 23:02 09/26/25 23:02 09/26/25 23:02
I&O
09/26/25 09/27/25 09/28/25
06:59 06:59 06:59
Intake Total 1075 / 1075
Output Total
Balance 1045 / 1045
Review of Systems
-
History Source: Patient
Constitutional: Denies Fever
Respiratory: Reports No Symptoms
Cardiac: Reports No Symptoms
Abdomen/GI: Reports Abdominal Pain; Denies Nausea, Vomiting, Diarrhea or Constipated
Genitourinary: Reports No Symptoms
Neuro: Reports No Symptoms
Physical Exam
-
General: Well Nourished and Comfortable
HEENT: Normocephalic
Respiratory: Clear to Auscultation and Non Labored Respirations
Cardiac: Regular Rhythm
GI: Soft, Nondistended, Tender (Overall improved) and Other (OSWALDO drain with SSF)
Genito-urinary: No Costovertebral Tender
Skin: Warm
Neuro: Awake, Alert and Oriented
Psych: Calm
Data Reviewed
-
CT Scan: Report Reviewed by me, Discussed with Physician and Discussed with Patient
Labs: Labs Reviewed by me, Discussed with Physician and Discussed with Patient
[2025-09-27 07:41] LABS: Hematocrit 38.5 % (37.0-47.0); Hemoglobin 13.1 g/dL (12.0-16.0); Mean Corp Hgb Conc. 34.0 g/dL (33.0-37.0); Mean Corpuscular Volume 91.0 fL (81.0-99.0); Platelet Count 343 10^3/uL (130-400); Red Cell Dist. Width 13.5 % (11.5-14.5)
[2025-09-27 07:56] LABS: Blood Urea Nitrogen 14 mg/dl (7-17); Calcium 8.7 mg/dl (8.4-10.2); Carbon Dioxide 25 mmol/L (22-30); Chloride 102 mmol/L (98-107); Estimated Creatinine Clearance 122 ml/min; Glucose 96 mg/dl (70-99); Potassium 3.6 mmol/L (3.5-5.1); Sodium 135 mmol/L (135-145); eGFR > 60.00
[2025-09-27] MEDS: FLAGYL 500 MG 100 IV ×2 (08:13→20:35)
[2025-09-27] MEDS: MOTRIN 600 MG PO ×2 (13:46→21:40)
[2025-09-27 15:00] VITALS: BP 143/84
--- NOTE | 2025-09-27 15:01 | CM ---
Possible discharge tomorrow
No CM needs
[2025-09-27] MEDS: LEVAQUIN 150 IV (17:30)
[2025-09-27 23:13] VITALS: BP 155/88
[2025-09-28] MEDS: ZOFRAN 4 MG IV ×2 (04:29→10:33)
[2025-09-28] MEDS: MOTRIN 600 MG PO ×3 (04:29→22:48)
[2025-09-28 07:00] VITALS: BP 159/85
--- NOTE | 2025-09-28 07:09 | W.PN.HOSP.TC ---
Today's Communication/Plan
-
zofran for nausea
willa drain removal defer to surgery
diet back to [facility] ; could not tolerate low residue
Assessment / Plan
Assessment / Plan
60 yo female with a h/o diverticulitis and no prior colonoscopy presented with 4-5 days of abdominal pain, poor appetite and 3 days of subjective fevers, dyspepsia and nausea with occasional vomiting.
# sigmoid diverticulitis complicated by perforation and localized peritonitis
#Abdominal pain associate with nausea, vomiting
- WBCs taperin down
- Continue with levofloxacin and metronidazole for now ; day 6
- General Surgery following
- diet back to [facility] ; could not tolerate low residue
- Discontinue IV fluid as patient is tolerating diet
- IV Dilaudid as needed for breakthrough pain pain ; will premedicate with IV Benadryl before Dilaudid dose
- IV Zofran as needed for nausea vomiting
- Patient will need reevaluation if develop any sudden worsening of current pain or any new symptoms
- Repeat CT abnormal focal fluid collection suggesting contained perforation/abscess slightly increased in length,
- Patient is s/p drainage with IR; WILLA drain with minimal SSF
- Continue some Zofran today for ongoing nausea
# Renal Cyst on CT
- Will need outpatient follow-up renal ultrasound
CT abdomen pelvis 09/23/2025
Findings of acute perforated sigmoid diverticulitis with small volume free air underlying the right hemidiaphragm.
Additionally extensive inflammatory changes along the sigmoid colon as well as a bilobed gas and fluid containing collection measuring approximately 4.9 x 2.6 cm along the sigmoid colon extending towards the left pelvis/adnexa.
There is a 9 mm complex cyst along the lower pole the right kidney which appears increased in size from prior. A follow-up nonemergent renal ultrasound should BE considered.
CT abd pevis 09/26/25:
IMPRESSION:
Inflammatory changes/stranding associated with proximal sigmoid diverticulitis improved in comparison to recent prior study. HOWEVER, accompanying crescentic abnormal focal fluid collection suggesting contained perforation/abscess slightly increased
in length, as detailed above. Cannot exclude involvement of the left adnexa. No free air.
Stable subcentimeter complex cystic lesion along the lower pole the right kidney, indeterminate.
#DVT prophylaxis
- SCDs
# CODE STATUS
-Full code
Anticipated Discharge: Within 24 hours
Subjective/Interval History
-
Date of Service: September 28, 2025
Afebrile. Vital stable. Patient reports of intermittent nausea at night after Low residue diet. Reports that the lower abdominal pain is tolerable at this time
Objective Data
-
Labs:
Laboratory Results
09/28/25
07:02
WBC Pending
Hgb Pending
Hct Pending
Plt Count Pending
Sodium Pending
Potassium Pending
Chloride Pending
Carbon Dioxide Pending
BUN Pending
Creatinine Pending
Glucose Pending
Calcium Pending
Vital Signs:
Vital Signs
Temp Pulse Resp BP Pulse Ox
98.1 F 75 18 155/88 95
09/27/25 23:13 09/27/25 23:13 09/27/25 23:13 09/27/25 23:13 09/27/25 23:13
I&O
09/27/25 09/28/25 09/29/25
06:59 06:59 06:59
Intake Total 1075 / 1075 2680 / 2680
Output Total
Balance 1045 / 1045 2680 / 2680
Review of Systems
-
History Source: Patient
Constitutional: Denies Fever
Respiratory: Reports No Symptoms
Cardiac: Reports No Symptoms
Abdomen/GI: Reports Abdominal Pain and Nausea; Denies Vomiting, Diarrhea or Constipated
Genitourinary: Reports No Symptoms
Neuro: Reports No Symptoms
Physical Exam
-
General: Well Nourished and Comfortable
HEENT: Normocephalic
Respiratory: Clear to Auscultation and Non Labored Respirations
Cardiac: Regular Rhythm
GI: Soft, Nondistended, Tender (Overall improved) and Other (WILLA drain with SSF)
Genito-urinary: No Costovertebral Tender
Skin: Warm
Neuro: Awake, Alert and Oriented
Psych: Calm
Data Reviewed
-
Labs: Labs Reviewed by me, Discussed with Physician and Discussed with Patient
[2025-09-28 07:25] LABS: Hematocrit 38.9 % (37.0-47.0); Hemoglobin 13.2 g/dL (12.0-16.0); Mean Corp Hgb Conc. 33.9 g/dL (33.0-37.0); Mean Corpuscular Volume 89.0 fL (81.0-99.0); Platelet Count 368 10^3/uL (130-400); Red Cell Dist. Width 13.2 % (11.5-14.5)
[2025-09-28] MEDS: FLAGYL 500 MG 100 IV ×2 (07:49→20:17)
[2025-09-28 08:01] LABS: Blood Urea Nitrogen 13 mg/dl (7-17); Calcium 8.8 mg/dl (8.4-10.2); Carbon Dioxide 28 mmol/L (22-30); Chloride 100 mmol/L (98-107); Estimated Creatinine Clearance 122 ml/min; Glucose 103 mg/dl (70-99); Potassium 3.7 mmol/L (3.5-5.1); Sodium 135 mmol/L (135-145); eGFR > 60.00
--- NOTE | 2025-09-28 10:23 | W.PN.GS2 ---
Today's Communication / Plan
-
LRD
Assessment / Plan
-
Assessment: 60-year-old female with sigmoid diverticulitis complicated by probable contained perforation and localized peritonitis.
Small volume remote free air in the right subdiaphragmatic space seen on CT imaging 09/23. No organizing abscess/fluid collection at initial imaging. She is clinically improved on IV antibiotics.
PPD1 s/p IR drain
ADAT to LRD.
Continue IV antibiotics
Patient agreeable to plan of care above.
Subjective Data
-
Date of Service: September 28, 2025
LATE ENTRY from 09/27/25
No complaints, feeling improved, hungry, pain improved
Objective Data
-
Intake and Output
09/27/25 09/28/25 09/29/25
06:59 06:59 06:59
Intake Total 1075 / 1075 2680 / 2680
Output Total 30 / 30
Balance 1045 / 1045 2680 / 2680
Intake:
Oral fluids 120 / 120 2580 / 2580
IV fluids (Total) 750 / 750 100 / 100
IV piggybacks 200 / 200
Amount instilled into Drain ( 5 / 5
Total)
Left Lower Abdomen Placed in IR 5 / 5
Output:
Drain Output (Total) 30 / 30
Left Lower Abdomen Placed in IR 30 / 30
Other:
Number of approximated MODERATE 2 3
amounts of urine
Vital Signs
Temp Pulse Resp BP Pulse Ox
97.9 F 81 16 159/85 94
09/28/25 07:00 09/28/25 07:00 09/28/25 07:00 09/28/25 07:00 09/28/25 07:00
Lab Results
09/28/25 07:02
09/28/25 07:02
Calcium 8.8 mg/dl (8.4-10.2) 09/28/25 07:02
Total Bilirubin 0.8 mg/dl (0.2-1.3) 09/23/25 10:06
AST 13 U/L (14-36) L 09/23/25 10:06
ALT 11 U/L (0-35) 09/23/25 10:06
Alkaline Phosphatase 111 U/L (38-126) 09/23/25 10:06
Total Protein 7.6 g/dl (6.3-8.2) 09/23/25 10:06
Albumin 4.2 g/dl (3.5-5.0) 09/23/25 10:06
Physical Exam
-
Gen: NAD
Abd: soft, mild ttp tp suprapubic and llq, drain light ss
Patient has a retana catheter: No
Patient has a central line: No
--- NOTE | 2025-09-28 10:25 | W.PN.GS2 ---
Today's Communication / Plan
-
CLD
Assessment / Plan
-
Assessment: 60-year-old female with sigmoid diverticulitis complicated by probable contained perforation and localized peritonitis.
Small volume remote free air in the right subdiaphragmatic space seen on CT imaging 09/23. No organizing abscess/fluid collection at initial imaging. She is clinically improved on IV antibiotics.
PPD2 s/p IR drain
WBC continues to improve
Pain continues to improve
New issues with naudea overnight after LRD
Back to CLD
Continue IV antibiotics
Patient agreeable to plan of care above.
Subjective Data
-
Date of Service: September 28, 2025
AFVSS, pain improved, new c/o nausea without emesis, passing flatus
Objective Data
-
Intake and Output
09/27/25 09/28/25 09/29/25
06:59 06:59 06:59
Intake Total 1075 / 1075 2680 / 2680
Output Total 30 / 30
Balance 1045 / 1045 2680 / 2680
Intake:
Oral fluids 120 / 120 2580 / 2580
IV fluids (Total) 750 / 750 100 / 100
IV piggybacks 200 / 200
Amount instilled into Drain ( 5 / 5
Total)
Left Lower Abdomen Placed in IR 5 / 5
Output:
Drain Output (Total) 30 / 30
Left Lower Abdomen Placed in IR 30 / 30
Other:
Number of approximated MODERATE 2 3
amounts of urine
Vital Signs
Temp Pulse Resp BP Pulse Ox
97.9 F 81 16 159/85 94
09/28/25 07:00 09/28/25 07:00 09/28/25 07:00 09/28/25 07:00 09/28/25 07:00
Lab Results
09/28/25 07:02
09/28/25 07:02
Calcium 8.8 mg/dl (8.4-10.2) 09/28/25 07:02
Total Bilirubin 0.8 mg/dl (0.2-1.3) 09/23/25 10:06
AST 13 U/L (14-36) L 09/23/25 10:06
ALT 11 U/L (0-35) 09/23/25 10:06
Alkaline Phosphatase 111 U/L (38-126) 09/23/25 10:06
Total Protein 7.6 g/dl (6.3-8.2) 09/23/25 10:06
Albumin 4.2 g/dl (3.5-5.0) 09/23/25 10:06
Physical Exam
-
Gen: NAD
Abd: soft, obese, nt, drain ss
Patient has a retana catheter: No
Patient has a central line: No
[2025-09-28 15:00] VITALS: BP 135/89; BP 152/94; BP 165/91; PULSE 75; PULSE 84; PULSE 97
[2025-09-28] MEDS: COMPAZINE 10 MG IV (15:07)
[2025-09-28] MEDS: NSS 500 IV (15:38)
[2025-09-28] MEDS: LEVAQUIN 150 IV (16:58)
[2025-09-28 23:32] VITALS: BP 158/84
[2025-09-29] MEDS: MOTRIN 600 MG PO ×3 (05:20→20:59)
[2025-09-29 07:00] VITALS: BP 160/84
[2025-09-29] MEDS: FLAGYL 500 MG 100 IV ×2 (08:35→20:59)
[2025-09-29 09:30] LABS: Hematocrit 40.3 % (37.0-47.0); Hemoglobin 14.1 g/dL (12.0-16.0); Mean Corp Hgb Conc. 35.0 g/dL (33.0-37.0); Mean Corpuscular Volume 86.3 fL (81.0-99.0); Red Cell Dist. Width 13.2 % (11.5-14.5)
--- NOTE | 2025-09-29 10:35 | W.PN.HOSP.TC ---
Addendum entered and electronically signed by Darin Conner MD 09/29/25 13:48:
I saw and evaluated the patient. I reviewed the resident�s note and agree with findings and plan as documented in the resident�s note.
1. Perforated sigmoid diverticulitis -free air noted in CT scan. Patient have previous 1 episode of sigmoid diverticulitis.
Repeat CT abdomen pelvis showing improvement in inflammatory changes of sigmoid diverticulitis. There is crescentic fluid collection suggesting contained perforation abscess slightly increased in length.
Surgery consulted interventional radiology and patient underwent a OSWALDO drain placement. OSWALDO drain output has slowed down. fluid culture report showing variable gram staining. Continue empiric antibiotic for now.
Patient unable to tolerate diet advancement to low residue diet. Currently on clear liquid diet and managing okay. Surgery planning for slow liberalization with possible switch to full liquid diet tomorrow.
2. Right renal complex cyst -will require follow-up with urology in office. will need surveillance us imaging
Original Note:
Today's Communication/Plan
-
Plan is to continue clear liquid diet today and potentially advancing tomorrow
Continue with IV antibiotics
Losartan 25 mg for blood pressure
Assessment / Plan
Assessment / Plan
60 yo female with a h/o diverticulitis and no prior colonoscopy presented with 4-5 days of abdominal pain, poor appetite and 3 days of subjective fevers, dyspepsia and nausea with occasional vomiting.
# sigmoid diverticulitis complicated by perforation and localized peritonitis
#Abdominal pain associate with nausea, vomiting
- WBCs taperin down
- Continue with levofloxacin and metronidazole for now ; day 7
- General Surgery following
- diet back to CLD ; could not tolerate low residue on 09/28
- IV Dilaudid as needed for breakthrough pain pain ; will premedicate with IV Benadryl before Dilaudid dose
- IV Zofran as needed for nausea vomiting
- Patient will need reevaluation if develop any sudden worsening of current pain or any new symptoms
- Repeat CT abnormal focal fluid collection suggesting contained perforation/abscess slightly increased in length,
- Patient is s/p drainage with IR; OSWALDO drain with minimal SSF
# Essential hypertension
- Blood pressure persistently remains more than 148/90
- Will start on a low-dose losartan ; patient agreeable
# Renal Cyst on CT
- Will need outpatient follow-up renal ultrasound
CT abdomen pelvis 09/23/2025
Findings of acute perforated sigmoid diverticulitis with small volume free air underlying the right hemidiaphragm.
Additionally extensive inflammatory changes along the sigmoid colon as well as a bilobed gas and fluid containing collection measuring approximately 4.9 x 2.6 cm along the sigmoid colon extending towards the left pelvis/adnexa.
There is a 9 mm complex cyst along the lower pole the right kidney which appears increased in size from prior. A follow-up nonemergent renal ultrasound should BE considered.
CT abd pevis 09/26/25:
IMPRESSION:
Inflammatory changes/stranding associated with proximal sigmoid diverticulitis improved in comparison to recent prior study. HOWEVER, accompanying crescentic abnormal focal fluid collection suggesting contained perforation/abscess slightly increased
in length, as detailed above. Cannot exclude involvement of the left adnexa. No free air.
Stable subcentimeter complex cystic lesion along the lower pole the right kidney, indeterminate.
#DVT prophylaxis
- SCDs
# CODE STATUS
-Full code
Anticipated Discharge: 24 - 48 hours
Subjective/Interval History
-
Date of Service: September 29, 2025
Afebrile. Hypertensive. Offers no new complaints.
Objective Data
-
Labs:
Laboratory Results
09/29/25 09/29/25
08:06 08:55
WBC 11.9 H
Hgb 14.1
Hct 40.3
Plt Count 312
Sodium Cancelled Pending
Potassium Cancelled Pending
Chloride Cancelled Pending
Carbon Dioxide Cancelled Pending
BUN Cancelled Pending
Creatinine Cancelled Pending
Glucose Cancelled Pending
Calcium Cancelled Pending
Vital Signs:
Vital Signs
Temp Pulse Resp BP Pulse Ox
98.4 F 73 18 167/93 98
09/29/25 11:00 09/29/25 11:00 09/29/25 11:00 09/29/25 11:00 09/29/25 11:00
I&O
09/28/25 09/29/25 09/30/25
06:59 06:59 06:59
Intake Total 2680 / 2680 1440 / 1440
Balance 2680 / 2680 1440 / 1440
Review of Systems
-
History Source: Patient
Constitutional: Denies Fever
Respiratory: Reports No Symptoms
Cardiac: Reports No Symptoms
Abdomen/GI: Reports Abdominal Pain; Denies Nausea, Vomiting, Diarrhea or Constipated
Genitourinary: Reports No Symptoms
Neuro: Reports No Symptoms
Physical Exam
-
General: Well Nourished and Comfortable
HEENT: Normocephalic
Respiratory: Clear to Auscultation and Non Labored Respirations
Cardiac: Regular Rhythm
GI: Soft, Nondistended, Tender (Overall improved) and Other (OSWALDO drain with SSF)
Genito-urinary: No Costovertebral Tender
Skin: Warm
Neuro: Awake, Alert and Oriented
Psych: Calm
Data Reviewed
-
Labs: Labs Reviewed by me, Discussed with Physician and Discussed with Patient
[2025-09-29 11:00] VITALS: BP 167/93
[2025-09-29] MEDS: COZAAR 25 MG PO (11:18)
[2025-09-29 11:47] LABS: Platelet Count 312 10^3/uL (130-400)
--- NOTE | 2025-09-29 12:16 | W.PN.GS2 ---
Today's Communication / Plan
-
c/w drain, abx, clears
Assessment / Plan
-
Assessment: 60-year-old female with sigmoid diverticulitis complicated by probable contained perforation and localized peritonitis.
Small volume remote free air in the right subdiaphragmatic space seen on CT imaging 09/23. No organizing abscess/fluid collection at initial imaging.
09/26 CT in follow up with interim development of abscess/fluid collection near the portion of the affected colon
PPD #3 Perc drain placement
She is clinically improved on IV antibiotics. Pain resolved.
Nausea on 09/28 with dietary advancement, tolerating clears without pain
Leukocytosis continues to improve
Passing gas, no BM's
Plan
Continue clear liquids, can advance to FLD later today vs tomorrow pending PO tolerance
Continue IV antibiotics
C/W IR drain with daily flush
Patient agreeable to plan of care above.
Subjective Data
-
Date of Service: September 29, 2025
Pt seen and examined at bedside with Dr. Brock. Denies n/v. Tolerating clears. Pain much improved.
Objective Data
-
Intake and Output
09/28/25 09/29/25 09/30/25
06:59 06:59 06:59
Intake Total 2680 / 2680 1440 / 1440
Balance 2680 / 2680 1440 / 1440
Intake:
Oral fluids 2580 / 2580 1440 / 1440
IV fluids (Total) 100 / 100
Other:
Number of approximated MODERATE 3 3
amounts of urine
Vital Signs
Temp Pulse Resp BP Pulse Ox
98.4 F 73 18 167/93 98
09/29/25 11:00 09/29/25 11:00 09/29/25 11:00 09/29/25 11:00 09/29/25 11:00
Lab Results
09/29/25 08:06
Calcium Cancelled 09/29/25 08:06
Total Bilirubin 0.8 mg/dl (0.2-1.3) 09/23/25 10:06
AST 13 U/L (14-36) L 09/23/25 10:06
ALT 11 U/L (0-35) 09/23/25 10:06
Alkaline Phosphatase 111 U/L (38-126) 09/23/25 10:06
Total Protein 7.6 g/dl (6.3-8.2) 09/23/25 10:06
Albumin 4.2 g/dl (3.5-5.0) 09/23/25 10:06
Physical Exam
-
NAD
ABD soft, nt, nd
IR drain with minimal SSF
--- NOTE | 2025-09-29 12:20 | CM ---
Patient seen at bedside
CLD
OSWALDO drain
PLAN: Home, no needs anticipated, CM to continue to follow
[2025-09-29 15:00] VITALS: BP 163/89
[2025-09-29] MEDS: LEVAQUIN 150 IV (15:11)
[2025-09-29] MEDS: ZOFRAN 4 MG IV (22:30)
[2025-09-29 22:44] VITALS: BP 157/80
[2025-09-30] MEDS: MOTRIN 600 MG PO ×2 (05:28→17:44)
[2025-09-30 07:00] VITALS: BP 156/89
[2025-09-30] MEDS: COZAAR 25 MG PO ×2 (08:29→16:08)
[2025-09-30] MEDS: FLAGYL 500 MG 100 IV ×2 (08:30→20:01)
--- NOTE | 2025-09-30 08:35 | CM ---
CM consulted for VN/home care. Patient will discharge home tentatively tomorrow w/ OSWALDO drain
CM placed referral to [facility]
Plan: Home w/ [facility]
[2025-09-30 08:49] LABS: Hematocrit 41.1 % (37.0-47.0); Hemoglobin 13.8 g/dL (12.0-16.0); Mean Corp Hgb Conc. 33.6 g/dL (33.0-37.0); Mean Corpuscular Volume 89.3 fL (81.0-99.0); Platelet Count 386 10^3/uL (130-400); Red Cell Dist. Width 13.2 % (11.5-14.5)
[2025-09-30 09:01] LABS: Blood Urea Nitrogen 12 mg/dl (7-17); Calcium 9.2 mg/dl (8.4-10.2); Carbon Dioxide 29 mmol/L (22-30); Chloride 101 mmol/L (98-107); Estimated Creatinine Clearance 122 ml/min; Glucose 103 mg/dl (70-99); Potassium 3.4 mmol/L (3.5-5.1); Sodium 138 mmol/L (135-145); eGFR > 60.00
--- NOTE | 2025-09-30 11:38 | W.PN.GS2 ---
Today's Communication / Plan
-
Full liquids
trend WBC
Assessment / Plan
-
Assessment: 60-year-old female with sigmoid diverticulitis complicated by probable contained perforation and localized peritonitis.
Small volume remote free air in the right subdiaphragmatic space seen on CT imaging 09/23. No organizing abscess/fluid collection at initial imaging.
09/26 CT in follow up with interim development of abscess/fluid collection near the portion of the affected colon.
PPD #4 Perc drain placement, final cx w/o growth
She has clinically improved on IV antibiotics. Pain resolved.
Leukocytosis trended up today
Passing gas, no BM's
Vomiting last night, ?nausea related to flagyl
Plan
FLD as tolerated
Continue IV antibiotics
C/W IR drain with daily flush
Trend labs/exams
VTE ppx with sq lovenox
Subjective Data
-
Date of Service: September 30, 2025
Pt seen and examined at bedside with Dr Rosa. Nausea with vomiting last night. No nausea today. Passing flatus. Occasional discomfort at drain site into her back, otherwise no pain.
Objective Data
-
Intake and Output
09/29/25 09/30/25 10/01/25
06:59 06:59 06:59
Intake Total 1440 / 1440 1490 / 1490
Output Total
Balance 1440 / 1440 1470 / 1470
Intake:
Oral fluids 1440 / 1440 1380 / 1380
IV piggybacks 100 / 100
Amount instilled into Drain (
Total)
Left Lower Abdomen Placed in IR
Output:
Drain Output (Total)
Left Lower Abdomen Placed in IR
Other:
Number of approximated MODERATE 3 1
amounts of urine
Vital Signs
Temp Pulse Resp BP Pulse Ox
97.9 F 74 16 156/89 93
09/30/25 07:00 09/30/25 07:00 09/30/25 07:00 09/30/25 07:00 09/30/25 07:00
Lab Results
09/30/25 07:57
09/30/25 07:57
Calcium 9.2 mg/dl (8.4-10.2) 09/30/25 07:57
Total Bilirubin 0.8 mg/dl (0.2-1.3) 09/23/25 10:06
AST 13 U/L (14-36) L 09/23/25 10:06
ALT 11 U/L (0-35) 09/23/25 10:06
Alkaline Phosphatase 111 U/L (38-126) 09/23/25 10:06
Total Protein 7.6 g/dl (6.3-8.2) 09/23/25 10:06
Albumin 4.2 g/dl (3.5-5.0) 09/23/25 10:06
Physical Exam
-
NAD
ABD soft, nt, nd
IR drain with ssf
--- NOTE | 2025-09-30 14:44 | W.PN.HOSP.TC ---
Today's Communication/Plan
-
increase losartn 50mg/d
maintain on CL diet
f/u CBC
Assessment / Plan
Assessment / Plan
1. Perforated sigmoid diverticulitis -free air noted in CT scan. Patient have previous 1 episode of sigmoid diverticulitis.
Repeat CT abdomen pelvis showing improvement in inflammatory changes of sigmoid diverticulitis. There is crescentic fluid collection suggesting contained perforation abscess slightly increased in length.
Surgery consulted interventional radiology and patient underwent a OSWALDO drain placement. OSWALDO drain output has slowed down. fluid culture report showing variable gram staining.
Continue empiric antibiotic for now.
Patient unable to tolerate diet advancement to low residue diet. Currently on clear liquid diet and managing okay.
Patient continues to have some lower abdomen discomfort. TWBC up-ticked today ,monitor. Discussed with CRS and possible re-imaging if continues to trend up.
2. Right renal complex cyst
will require follow-up with urology in office. will need surveillance us imaging
3. Elevated blood pressure
No formal diagnosis of hypertension. Increase dose of losartan to 50 mg daily
Full code
Anticipated Discharge: > 48 hours
Subjective/Interval History
-
Date of Service: September 30, 2025
Feeling some lower abdominal discomfort and nausea today
remains afebrile
passing gas with some stool
Objective Data
-
Labs:
Laboratory Results
09/30/25
07:57
WBC 14.7 H
Hgb 13.8
Hct 41.1
Plt Count 386 D
Sodium 138
Potassium 3.4 L
Chloride 101
Carbon Dioxide 29
BUN 12
Creatinine 0.5 L
Glucose 103 H
Calcium 9.2
Vital Signs:
Vital Signs
Temp Pulse Resp BP Pulse Ox
97.9 F 74 16 156/89 93
09/30/25 07:00 09/30/25 07:00 09/30/25 07:00 09/30/25 07:00 09/30/25 07:00
I&O
09/29/25 09/30/25 10/01/25
06:59 06:59 06:59
Intake Total 1440 / 1440 1490 / 1490
Output Total
Balance 1440 / 1440 1470 / 1470
Review of Systems
-
Respiratory: Reports No Symptoms
Cardiac: Reports No Symptoms
Abdomen/GI: Reports Abdominal Pain; Denies Nausea or Vomiting
Physical Exam
-
General: Obese; Negative Appears in Distress
GI: Soft, Nondistended and Tender (Minimal lower quadrant)
Neuro: Awake, Alert, Oriented and No Motor Deficits
[2025-09-30 15:00] VITALS: BP 161/96
[2025-09-30] MEDS: LEVAQUIN 150 IV (16:07)
[2025-09-30] MEDS: COMPAZINE 10 MG IV (17:46)
[2025-09-30] MEDS: LOVENOX SC (18:15)
[2025-09-30 23:09] VITALS: BP 156/90
[2025-10-01 07:00] VITALS: BP 157/82
[2025-10-01] MEDS: FLAGYL 500 MG 100 IV ×2 (07:23→19:18)
[2025-10-01] MEDS: COZAAR 50 MG PO (07:25)
[2025-10-01] MEDS: MOTRIN 600 MG PO ×2 (08:38→22:37)
[2025-10-01 08:56] LABS: Hematocrit 42.3 % (37.0-47.0); Hemoglobin 14.0 g/dL (12.0-16.0); Mean Corp Hgb Conc. 33.1 g/dL (33.0-37.0); Mean Corpuscular Volume 89.4 fL (81.0-99.0); Platelet Count 398 10^3/uL (130-400); Red Cell Dist. Width 13.4 % (11.5-14.5)
[2025-10-01 09:15] LABS: Blood Urea Nitrogen 12 mg/dl (7-17); Carbon Dioxide 29 mmol/L (22-30); Chloride 102 mmol/L (98-107); Estimated Creatinine Clearance 122 ml/min; Glucose 112 mg/dl (70-99); Potassium 3.7 mmol/L (3.5-5.1); Sodium 138 mmol/L (135-145); eGFR > 60.00
[2025-10-01 09:16] LABS: Calcium 9.2 mg/dl (8.4-10.2)
[2025-10-01] MEDS: OMNIPAQUE 50 ML PO (10:58)
--- NOTE | 2025-10-01 12:15 | W.PN.GS2 ---
Today's Communication / Plan
-
CT abd/pelvis
Assessment / Plan
-
Assessment: 60-year-old female with sigmoid diverticulitis complicated by probable contained perforation and localized peritonitis.
Small volume remote free air in the right subdiaphragmatic space seen on CT imaging 09/23. No organizing abscess/fluid collection at initial imaging.
09/26 CT in follow up with interim development of abscess/fluid collection near the portion of the affected colon.
PPD #5 Perc drain placement, final cx w/o growth
She has clinically improved on IV antibiotics. Pain resolved.
Leukocytosis remains elevated at 14.0
Nausea improving overall, no further emesis
Plan
FLD as tolerated
Repeat CT abd/pelvis with po/iv contrast
Continue IV antibiotics
C/W IR drain with daily flush
CM consulted for VNA as anticipate pt will be going home with drain
Trend labs/exams
VTE ppx with sq lovenox
Subjective Data
-
Date of Service: October 01, 2025
Pt seen and examined at bedside with Dr. Rosa. Minimal discomfort at drain site, otherwise no pain. Some nausea yesterday evening, none today. Passing flatus.
Objective Data
-
Intake and Output
09/30/25 10/01/25 10/02/25
06:59 06:59 06:59
Intake Total 1490 / 1490 345 / 345
Output Total
Balance 1470 / 1470 345 / 345
Intake:
Oral fluids 1380 / 1380 240 / 240
IV piggybacks 100 / 100 100 / 100
Amount instilled into Drain ( 10 5 / 5
Total)
Left Lower Abdomen Placed in IR 10 5 /
Output:
Drain Output (Total)
Left Lower Abdomen Placed in IR
Other:
Number of approximated MODERATE 1 2
amounts of urine
Vital Signs
Temp Pulse Resp BP Pulse Ox
98.8 F 80 14 157/82 96
10/01/25 07:00 10/01/25 07:00 10/01/25 07:00 10/01/25 07:00 10/01/25 07:00
Lab Results
10/01/25 08:32
10/01/25 08:32
Calcium 9.2 mg/dl (8.4-10.2) 10/01/25 08:32
Total Bilirubin 0.8 mg/dl (0.2-1.3) 09/23/25 10:06
AST 13 U/L (14-36) L 09/23/25 10:06
ALT 11 U/L (0-35) 09/23/25 10:06
Alkaline Phosphatase 111 U/L (38-126) 09/23/25 10:06
Total Protein 7.6 g/dl (6.3-8.2) 09/23/25 10:06
Albumin 4.2 g/dl (3.5-5.0) 09/23/25 10:06
Physical Exam
-
NAD
ABD soft, nt, nd
IR drain with ssf
[2025-10-01 15:00] VITALS: BP 167/95
--- NOTE | 2025-10-01 15:00 | W.PN.HOSP.TC ---
Today's Communication/Plan
-
see note
await surg input
Assessment / Plan
Assessment / Plan
1. Perforated sigmoid diverticulitis
free air noted in CT scan. Patient have previous 1 episode of sigmoid diverticulitis.
09/26 - Repeat CT abdomen pelvis showing improvement in inflammatory changes of sigmoid diverticulitis. There is crescentic fluid collection suggesting contained perforation abscess slightly increased in length.
Surgery consulted interventional radiology and patient underwent a OSWALDO drain placement. OSWALDO drain output has slowed down. fluid culture report showing variable gram staining. no clear bacterial growth on culture report.
Continue empiric antibiotic for now.
Patient unable to tolerate diet advancement to low residue diet earlier in week. Currently on clear liquid diet and surg managing
Repeat CT a/p today - Status post percutaneous drainage catheter placement with collapse of the anterior component of the sigmoid peridiverticular abscess. However, there is a persistent posterior abscess component which has increased slightly in
size. Persistent inflammatory changes of the sigmoid colon are otherwise noted, slightly improved.
2. Right renal complex cyst
will require follow-up with urology in office. will need surveillance us imaging
3. Elevated blood pressure
No formal diagnosis of hypertension. Increase dose of losartan to 50 mg daily
Full code
care plan discussed with surgery
Anticipated Discharge: 24 - 48 hours
Subjective/Interval History
-
Date of Service: October 01, 2025
subjectively feeling better
Denies any nausea/abd pain/fever
Objective Data
-
Labs:
Laboratory Results
10/01/25
08:32
WBC 14.0 H
Hgb 14.0
Hct 42.3
Plt Count 398
Sodium 138
Potassium 3.7
Chloride 102
Carbon Dioxide 29
BUN 12
Creatinine 0.6
Glucose 112 H
Calcium 9.2
Vital Signs:
Vital Signs
Temp Pulse Resp BP Pulse Ox
98.8 F 80 14 157/82 96
10/01/25 07:00 10/01/25 07:00 10/01/25 07:00 10/01/25 07:00 10/01/25 07:00
I&O
09/30/25 10/01/25 10/02/25
06:59 06:59 06:59
Intake Total 1490 / 1490 345 / 345
Output Total
Balance 1470 / 1470 345 / 345
Review of Systems
-
Respiratory: Reports No Symptoms
Cardiac: Reports No Symptoms
Abdomen/GI: Reports No Symptoms
Physical Exam
-
General: Obese; Negative Appears in Distress
GI: Soft and Nondistended
Neuro: Awake, Alert, Oriented and No Motor Deficits
[2025-10-01] MEDS: LEVAQUIN 150 IV (15:33)
[2025-10-01] MEDS: LOVENOX SC (17:22)
[2025-10-01] MEDS: COMPAZINE 10 MG IV (22:38)
[2025-10-01 23:04] VITALS: BP 104/68
[2025-10-02] VITALS (9 sets, daily range): BP systolic 64–171; BP diastolic 74–101
--- NOTE | 2025-10-02 07:49 | W.PN.HOSP.TC ---
Addendum entered and electronically signed by Yazmin Holman MD 10/02/25 14:50:
I saw and evaluated the patient independently. I reviewed and discussed the resident�s note and agree with findings and plan as documented by Dr. Montague.
GENERAL: well developed, well nourished, obese female in no apparent distress
HEENT: NC/AT--thrush
HEART: regular rate and rhythm, +S1, +S2, not tachycardic
LUNGS : clear to auscultation bilaterally
ABDOM: soft, tender bilateral lower quadrants with guarding, nondistended, + bowel sounds--SARATH drain in place
EXT: no cyanosis, clubbing, or edema
NEUROLOGIC: grossly intact
acute sigmoid diverticulitis complicated by perforation and localized peritonitis (does not meet sepsis criteria by new guidelines)--with associated pain, n/v--follow leukocytes--cont IV levoquin--advancing diet not going as smoothly as
anticipated--still on clears--follow cultures--appec surgery--pain meds--antiemetics--repeat CT scans were followed--and second drain being placed today by IR--apprec IR/surgery
Renal Cyst on CT- Will need outpatient follow-up renal ultrasound
Essential HTN--cont losartan for now
thrush--mycelex lozenges
DVT prophylaxis- SCDs
CODE STATUS--Full code
Original Note:
Today's Communication/Plan
-
IR drained today
Start Clotrimazole
Assessment / Plan
Assessment / Plan
Ms Menjivar is a 60 year old female presented 9 ays ago [09/25/2025] on account of 4-5 days of abdominal pain, poor appetite and 3 days of subjective fevers, dyspepsia and nausea with occasional vomiting.
Being managed conservatively for perforated sigmoid diverticulitis.
1) Perforated sigmoid diverticulitis
-General Surgery following, appreciate recommendation. For continued conservative management.
-Presented with leukocytosis, 19.4 initially down trended both spiked to 14.[address] scan abdomen.
-CT abdomen
09/23/2025
Findings of acute perforated sigmoid diverticulitis with small volume free air underlying the right hemidiaphragm. Additionally extensive inflammatory changes along the sigmoid colon as well as a bilobed gas and fluid containing collection
measuring approximately 4.9 x 2.6 cm along the sigmoid colon extending towards the left pelvis/adnexa.
09/26/2025
Inflammatory changes/stranding associated with proximal sigmoid diverticulitis improved in comparison to recent prior study. HOWEVER, accompanying crescentic abnormal focal fluid collection suggesting contained perforation/abscess slightly increased
in length, as detailed above. Cannot exclude involvement of the left adnexa. No free air.
10/01/2025
Status post percutaneous drainage catheter placement with collapse of the anterior component of the sigmoid peridiverticular abscess. However, there is a posterior abscess component noted, measuring approximately 4.4 cm AP by 3.4 cm transverse.
Previous corresponding measurements of 4.3 x 2.3 cm. This contains fluid as well as gas and secondary air-fluid level.
Persistent inflammatory changes of the sigmoid colon are otherwise noted, slightly improved.
No free air. No bowel obstruction. No other significant change.
-Percutaneous drainage 09/26/2025 of left pelvic abscess.
Sarath drain in place, draining minimal fluid.
-For IR- Drain of the posterior fluid collection.
-Continue clear liquid diet following procedure.
- Continue IV Levofloxacin
2) Elevated blood pressure
Previous h/o hypertension, 25yrs ago, treated for 1 month with Bystolic.
Currently on Losartan 50mg
3) Thrush
Clotrimazole, when okay for p.o; c
4) Right renal complex cyst
Will require follow-up with urology in office.
Will need surveillance us imaging.
Code status- full code
DVT PPX
care plan discussed with surgery
Anticipated Discharge: 24 - 48 hours
Subjective/Interval History
-
Date of Service: October 02, 2025
Patient seen this morning.
Had an episode of nausea vomiting and abdominal pain (ps-5/10) requiring Compazine.
Feels better this morning.
Objective Data
-
Vital Signs:
Vital Signs
Temp Pulse Resp BP Pulse Ox
97.6 F 76 16 104/68 93
10/01/25 23:04 10/01/25 23:04 10/01/25 23:04 10/01/25 23:04 10/01/25 23:04
I&O
10/01/25 10/02/25 10/03/25
06:59 06:59 06:59
Intake Total 345 / 345 580 / 580
Output Total
Balance 345 / 345 560 / 560
Review of Systems
-
History Source: Patient
All other systems: Reviewed and negative
Physical Exam
-
General: Well Developed
HEENT: Normocephalic, Atraumatic and Other (Whitish coating on tongue)
Respiratory: Clear to Auscultation
Cardiac: Regular Rhythm and S1/S2
GI: Soft, Nontender, Nondistended and Other (SARATH drain sites covered with dressing, clean and dry. Drain with minimal pink fluid)
Musculoskeletal: No Edema
Skin: Warm and Dry
Neuro: Awake, Alert and Oriented
Psych: Calm
Data Reviewed
-
Medical Tests (Nuc Med, Echo etc): Report Reviewed by me, Discussed with Physician and Discussed with Patient
Labs: Labs Reviewed by me, Discussed with Physician, Discussed with Patient and Discussed with Family
[2025-10-02] MEDS: FLAGYL 500 MG 100 IV ×2 (09:48→19:58)
[2025-10-02] MEDS: COZAAR 50 MG PO (09:49)
--- NOTE | 2025-10-02 10:43 | W.PN.GS2 ---
Today's Communication / Plan
-
-- IR drain posterior collection
Assessment / Plan
-
Assessment: 60-year-old female with sigmoid diverticulitis complicated by probable contained perforation and localized peritonitis.
Small volume remote free air in the right subdiaphragmatic space seen on CT imaging 09/23. No organizing abscess/fluid collection at initial imaging.
09/26 CT in follow up with interim development of abscess/fluid collection near the portion of the affected colon.
PPD6 Perc drain placement, final cx w/o growth
10/01 CT A/P (repeat) improvement and resolution and anterior collection, persistent and slightly increased posterior collection, no worsening free air
She has clinically improved on IV antibiotics. Pain resolved.
Leukocytosis remains elevated at 14.0, repeat ordered
Plan for IR drainage of persistent posterior abscess/collection
Plan
-- IR drain posterior collection
-- FLD as tolerated
-- Continue IV antibiotics
-- C/W IR drain with daily flush
-- CM consulted for VNA as anticipate pt will be going home with drain
-- Trend labs/exams
-- DVT: Lovenox
Subjective Data
-
Date of Service: October 02, 2025
Denies worsening abdominal pain. No nausea or vomiting. No fevers. Passing loose/liquid stools and flatus.
Objective Data
-
Intake and Output
10/01/25 10/02/25 10/03/25
06:59 06:59 06:59
Intake Total 345 / 345 580 / 580
Output Total
Balance 345 / 345 560 / 560
Intake:
Oral fluids 240 / 240 480 / 480
IV piggybacks 100 / 100 100 / 100
Amount instilled into Drain (
Total)
Left Lower Abdomen Placed in IR
Output:
Drain Output (Total)
Left Lower Abdomen Placed in IR
Other:
Number of approximated MODERATE 2 2
amounts of urine
Vital Signs
Temp Pulse Resp BP Pulse Ox
97.9 F 84 16 149/94 98
10/02/25 07:00 10/02/25 09:49 10/02/25 07:00 10/02/25 09:49 10/02/25 07:00
Lab Results
10/01/25 08:32
10/01/25 08:32
Calcium 9.2 mg/dl (8.4-10.2) 10/01/25 08:32
Total Bilirubin 0.8 mg/dl (0.2-1.3) 09/23/25 10:06
AST 13 U/L (14-36) L 09/23/25 10:06
ALT 11 U/L (0-35) 09/23/25 10:06
Alkaline Phosphatase 111 U/L (38-126) 09/23/25 10:06
Total Protein 7.6 g/dl (6.3-8.2) 09/23/25 10:06
Albumin 4.2 g/dl (3.5-5.0) 09/23/25 10:06
Physical Exam
-
Gen: NAD
Abd: soft, minimal tenderness in LLQ overlying drain, obese, non-peritoneal, IR drain serosang
Patient has a retana catheter: No
Patient has a central line: No
[2025-10-02] MEDS: COMPAZINE 10 MG IV (11:52)
[2025-10-02] MEDS: MYCELEX TROCHE PO (12:27)
--- NOTE | 2025-10-02 13:36 | VNURNOTE ---
Two attempts made to meet with pt at bedside. She was off the floor. Will follow up later.
Per chart review- pt with OSWALDO drain and will be getting a second drain today. Orders for DC are to flush OSWALDO daily. Reached out to pt's preferred pharm - [facility] - Per Devorah - they do not have in stock but can order - will take 24 hrs to get in
stock. If Rx rec'ed by 1600 today, [facility] can have available for picker/puller tomorrow afternoon. T.Text sent to hospitalist requesting Rx be sent today. Requested primary RN Will to pack extra flushes for pt to take home.
--- NOTE | 2025-10-02 13:44 | CM ---
Patient will discharge home w/ [facility] when medically stable
--- NOTE | 2025-10-02 14:05 | W.PN.UPDATE ---
Update Note
Progress Note Update
- CT guided placement of second drain into more lateral component of diverticular abscess
- 8.5F drain placed with 5-10 mL of gas and purulent fluid aspirated.
- Drain is very deep, approximately 15 cm. I do worry that it could retract/become dislodged with time. Will follow
[2025-10-02] MEDS: MYCELEX TROCHE 10 MG PO ×3 (14:15→21:16)
[2025-10-02 14:30] LABS: Hematocrit 41.8 % (37.0-47.0); Hemoglobin 14.1 g/dL (12.0-16.0); Mean Corp Hgb Conc. 33.7 g/dL (33.0-37.0); Mean Corpuscular Volume 90.5 fL (81.0-99.0); Platelet Count 385 10^3/uL (130-400); Red Cell Dist. Width 13.5 % (11.5-14.5)
[2025-10-02] MEDS: LOVENOX 40 MG SC (17:39)
[2025-10-02] MEDS: LEVAQUIN 150 IV (17:39)
[2025-10-03 03:00] VITALS: BP 160/83
[2025-10-03] MEDS: COMPAZINE 10 MG IV (03:10)
[2025-10-03 07:00] VITALS: BP 148/90
--- NOTE | 2025-10-03 07:28 | W.PN.HOSP.TC ---
Today's Communication/Plan
-
Continue antibiotics
Assessment / Plan
Assessment / Plan
Ms Menjivar is a 60 year old female presented 10 days ago [09/25/2025] on account of 4-5 days of abdominal pain, poor appetite and 3 days of subjective fevers, dyspepsia and nausea with occasional vomiting.
Being managed conservatively for perforated sigmoid diverticulitis.
1) Perforated sigmoid diverticulitis
-Acute sigmoid diverticulitis complicated by perforation and localized peritonitis (does not meet sepsis criteria by new guidelines)
-General Surgery following, appreciate recommendation. For continued conservative management.
-CT abdomen
09/23/2025
Findings of acute perforated sigmoid diverticulitis with small volume free air underlying the right hemidiaphragm. Additionally extensive inflammatory changes along the sigmoid colon as well as a bilobed gas and fluid containing collection
measuring approximately 4.9 x 2.6 cm along the sigmoid colon extending towards the left pelvis/adnexa.
09/26/2025
Inflammatory changes/stranding associated with proximal sigmoid diverticulitis improved in comparison to recent prior study. HOWEVER, accompanying crescentic abnormal focal fluid collection suggesting contained perforation/abscess slightly increased
in length, as detailed above. Cannot exclude involvement of the left adnexa. No free air.
10/01/2025
Status post percutaneous drainage catheter placement with collapse of the anterior component of the sigmoid peridiverticular abscess. However, there is a posterior abscess component noted, measuring approximately 4.4 cm AP by 3.4 cm transverse.
Previous corresponding measurements of 4.3 x 2.3 cm. This contains fluid as well as gas and secondary air-fluid level.
Persistent inflammatory changes of the sigmoid colon are otherwise noted, slightly improved.
No free air. No bowel obstruction. No other significant change.
-Percutaneous drainage 09/26/2025 (7 days ago) of left pelvic abscess.
Oswaldo drain in place, draining minimal fluid.
-Had a 2nd IR- Drain of the posterior fluid collection yesterday 10/02/2025.
Appreciate IR input
CT guided placement of second drain into more lateral component of diverticular abscess
- 8.5F drain placed with 5-10 mL of gas and purulent fluid aspirated.
- Drain is very deep, approximately 15 cm. I do worry that it could retract/become dislodged with time.
-Presented with leukocytosis, 19.4 finally trended down to 9.8 on IV Levofloxacin, Metronidazole.
-Continue clear liquid diet following procedure.
- Continue IV Abx pending new drain culture, previous without bacterial growth
2) Elevated blood pressure
Previous h/o hypertension, 25yrs ago, treated for 1 month with Bystolic.
Currently on Losartan 50mg
Blood pressure not yet under control per chart.
3) Thrush
Commenced on PO Clotrimazole yesterday
4) Right renal complex cyst
Will require follow-up with urology in office.
Will need surveillance us imaging.
Code status- full code
DVT PPX
care plan discussed with surgery
Anticipated Discharge: 24 - 48 hours
Subjective/Interval History
-
Date of Service: October 03, 2025
Met lying in bed
Had an episode of Vomiting early this morning.
Still having regular, daily liquid bowel movement, 2-3, non-bloody
Objective Data
-
Labs:
Laboratory Results
10/03/25
06:00
WBC Pending
Hgb Pending
Hct Pending
Plt Count Pending
Sodium Pending
Potassium Pending
Chloride Pending
Carbon Dioxide Pending
BUN Pending
Creatinine Pending
Glucose Pending
Calcium Pending
Vital Signs:
Vital Signs
Temp Pulse Resp BP Pulse Ox
98.2 F 86 16 160/83 94
10/03/25 03:00 10/03/25 03:00 10/03/25 03:00 10/03/25 03:00 10/03/25 03:00
I&O
10/02/25 10/03/25 10/04/25
06:59 06:59 06:59
Intake Total 580 / 580 480 / 480
Output Total
Balance 560 / 560 465 / 465
Review of Systems
-
History Source: Patient
All other systems: Reviewed and negative
Physical Exam
-
General: Well Developed
HEENT: Normocephalic, Atraumatic and Other (Whitish coating on tongue)
Respiratory: Clear to Auscultation
Cardiac: Regular Rhythm and S1/S2
GI: Soft, Nontender, Nondistended, Normal Bowel Sounds and Other (Both OSWALDO drain sites covered with dressing, clean and dry. Both draining minimal pink fluid)
Musculoskeletal: No Edema
Skin: Warm and Dry
Neuro: Awake, Alert, Oriented and DTR's Intact & Symmetrica
Hematologic / Lymphatic: Other
Psych: Calm
Data Reviewed
-
Labs: Labs Reviewed by me, Discussed with Physician and Discussed with Patient
[2025-10-03] MEDS: FLAGYL 500 MG 100 IV ×2 (07:51→19:27)
--- NOTE | 2025-10-03 08:04 | W.PN.GS2 ---
Addendum entered and electronically signed by Altaf Fraser MD 10/03/25 12:31:
Patient seen and examined.
Issues with episode of nausea and vomiting yesterday evening. Continues to pass flatus and loose stools. No worsening abdominal pain. No fevers.
Gen: NAD
Abd: soft, minimal tenderness, ND/obese, non-peritoneal, IR drain B (old) serosang, IR drain A (new) mild purulent/feculent
Patient is a 60 yo F p/w acute complicated diverticulitis with perforation and abscess formation
10/01 CT A/P (repeat) improvement and resolution and anterior collection, persistent and slightly increased posterior collection, no worsening free air
PPD6 Perc drain placement, final cx w/o growth
PPD1 Second perc drain into persistent posterior collection
Clinically stable. Resolution of leukocytosis. Afebrile. Issues with nausea and vomiting possibly related to antibiotics, less likely obstructive. Continue with full liquids with tentative plan to advance to a low residue diet later this
afternoon if symptoms have improved.
Plan
-- FLD with ADAT to LRD this afternoon
-- Abx: Levo/Falgyl
-- C/W IR drains with daily BID
-- CM consulted for VNA as anticipate pt will be going home with drain
-- Trend labs/exams
-- DVT: Lovenox
Original Note:
Today's Communication / Plan
-
Possible D/c tomorrow
Continue to trend WBC
Consider advancing diet this afternoon provided WBC remains normal and she is free of vomiting
Okay to shower
Assessment / Plan
-
Assessment: This is a 60 y/o female with pmhx of diverticulitis who developed lower abdominal pain on 09/18/2025 accompanied by nausea and vomiting with loose stools, leading to poor oral intake who presented to the ED on 09/23 and was found to have
sigmoid diverticulitis complicated by likely perforation with localized peritonitis based upon CT scan, now with drains x2 (Post-drainage day 7 for drain one, post drainage day 1 for drain two).
Plan:
Perforated Sigmoid Diverticulitis
-CT Scan 09/23: Findings of acute perforated sigmoid diverticulitis with small volume free air underlying the right hemidiaphragm. Additionally extensive inflammatory changes along the sigmoid colon as well as a bilobed gas and fluid containing
collection measuring approximately 4.9 x 2.6 cm along the sigmoid colon extending towards the left pelvis/adnexa.
-CT scan 09/26: Inflammatory changes/stranding associated with proximal sigmoid diverticulitis improved in comparison to recent prior study. HOWEVER, accompanying crescentic abnormal focal fluid collection suggesting contained perforation/abscess
slightly increased in length, as detailed above. Cannot exclude involvement of the left adnexa. No free air.
-CT scan 10/01: Status post percutaneous drainage catheter placement with collapse of the anterior component of the sigmoid peridiverticular abscess. However, there is a persistent posterior abscess component which has increased slightly in size.
Persistent inflammatory changes of the sigmoid colon are otherwise noted, slightly improved. No free air. No bowel obstruction. No other significant change.
-S/p drains x2, first drain placed 7 days ago (09/26), 2nd drain placed 1 day ago (10/02)
-WBC count normalized yesterday. Continue to trend WBC count today
-Despite vomiting episode overnight, patient has clinically improved on IV antibiotics with resolution of pain. Continue to monitor for symptoms
-Pending WBC count and if patient remains free of nausea/vomiting this afternoon, will plan to advance diet to low residue later today
-Continue IR drain with daily flushes
-Continue IV antibiotics
-Will weigh benefits of removal of oldest drain tomorrow as it is now one week old, vs waiting 1 week and having both drains removed at same time.
-Recommend VNA on discharge as patient will be going home with at least the newest drain placed yesterday
Subjective Data
-
Date of Service: October 03, 2025
Patient was resting comfortably in her room, awake when I arrived. She reports an episode of vomiting overnight which she associates with the IV antibiotic she is receiving, though her vomiting was several hours after the IV had finished. She is
currently free of nausea, fevers, chills, abdominal pain.
Objective Data
-
Intake and Output
10/02/25 10/03/25 10/04/25
06:59 06:59 06:59
Intake Total 580 / 580 480 / 480
Output Total
Balance 560 / 560 465 / 465
Intake:
Oral fluids 480 / 480 480 / 480
IV piggybacks 100 / 100
Output:
Drain Output (Total)
Left Abdomen A
Left Abdomen B
Left Lower Abdomen Placed in IR
Other:
Number of approximated MODERATE 2
amounts of urine
Number of approximated LARGE 1
amounts of urine
Vital Signs
Temp Pulse Resp BP Pulse Ox
98.2 F 86 16 160/83 94
10/03/25 03:00 10/03/25 03:00 10/03/25 03:00 10/03/25 03:00 10/03/25 03:00
Calcium 9.2 mg/dl (8.4-10.2) 10/01/25 08:32
Total Bilirubin 0.8 mg/dl (0.2-1.3) 09/23/25 10:06
AST 13 U/L (14-36) L 09/23/25 10:06
ALT 11 U/L (0-35) 09/23/25 10:06
Alkaline Phosphatase 111 U/L (38-126) 09/23/25 10:06
Total Protein 7.6 g/dl (6.3-8.2) 09/23/25 10:06
Albumin 4.2 g/dl (3.5-5.0) 09/23/25 10:06
Physical Exam
-
General: Alert, oriented, no distress, comfortable
Abdomen: The abdomen is free of rashes or lesions. There are two clean, bandaged drains present in the lower quadrants, one more midline and one lateral towards the left side. The drain site cannot be visualized due to the bandages. The drains
themselves each have a small amount of drainage present, Serous from the midline and more red from the lateral (older) drain
Patient has a retana catheter: No
Patient has a central line: No
[2025-10-03] MEDS: COZAAR 50 MG PO (08:06)
[2025-10-03] MEDS: MYCELEX TROCHE 10 MG PO ×5 (08:08→21:01)
--- NOTE | 2025-10-03 08:12 | W.PN.UPDATE ---
Update Note
Progress Note Update
60 yo female with 2 IR drains for diverticular abscess.
VSS
Abdomen is soft and nontender
A/P
Recommend flush each drain with 5 mL daily may need BID flushes in lateral drain
Continue to record outputs q shift
Instructions on drain care provided
Script for flushes in chart
[2025-10-03 10:08] LABS: Hematocrit 40.6 % (37.0-47.0); Hemoglobin 14.2 g/dL (12.0-16.0); Mean Corp Hgb Conc. 35.0 g/dL (33.0-37.0); Mean Corpuscular Volume 86.2 fL (81.0-99.0); Platelet Count 287 10^3/uL (130-400); Red Cell Dist. Width 13.5 % (11.5-14.5)
[2025-10-03 10:25] LABS: Blood Urea Nitrogen 12 mg/dl (7-17); Calcium 8.9 mg/dl (8.4-10.2); Carbon Dioxide 25 mmol/L (22-30); Chloride 103 mmol/L (98-107); Estimated Creatinine Clearance 122 ml/min; Glucose 161 mg/dl (70-99); Potassium 3.6 mmol/L (3.5-5.1); Sodium 135 mmol/L (135-145); eGFR > 60.00
--- NOTE | 2025-10-03 12:02 | VNURNOTE ---
Home Health Liaison met with patient at bedside to discuss [facility] nurse/therapy, visits, schedule and homebound status. Patient is agreeable and understands that visits at home will be 2-3 x per week to assess and teach medical management. Patient
is aware that [facility] will contact them for start of care within 1-2 days after discharge from . Provided contact number for [facility]. Updated NSS flush Rx sent to pt's pharmacy [facility] by Candis Vang. Pt aware to bring extra flushes
home, will take 24 hr for pharmacy to process once Rx obtained.
[facility] referral completed in [facility].
[2025-10-03 15:00] VITALS: BP 157/97
--- NOTE | 2025-10-03 15:19 | CM ---
Patient seen at bedside with physician. Patient for home with [facility] when medically appropriate. CM will continue to follow for discharge planning needs.
Plan; home with [facility]
[2025-10-03] MEDS: LEVAQUIN 150 IV (16:20)
[2025-10-03] MEDS: LOVENOX 40 MG SC (16:20)
[2025-10-03 19:50] VITALS: BP 135/77
--- NOTE | 2025-10-03 20:10 | W.PN.UPDATE ---
Update Note
Progress Note Update
I saw and evaluated the patient independently. I reviewed and discussed the resident�s note and agree with findings and plan as documented by Dr. Montague.
GENERAL: well developed, well nourished, obese female in no apparent distress
HEENT: NC/AT--thrush
HEART: regular rate and rhythm, +S1, +S2, not tachycardic
LUNGS : clear to auscultation bilaterally
ABDOM: soft, tender bilateral lower quadrants with guarding, nondistended, + bowel sounds--OSWALDO drain in place
EXT: no cyanosis, clubbing, or edema
NEUROLOGIC: grossly intact
acute sigmoid diverticulitis complicated by perforation and localized peritonitis (does not meet sepsis criteria by new guidelines)--with associated pain, n/v--follow leukocytes, much improved--cont IV levoquin/flagyl--advancing diet to low residue
per surgery--likely will NOT need IV abx at d/c--follow cultures--appec surgery--pain meds--antiemetics--repeat CT scans were followed--and second drain in place--apprec IR/surgery
Renal Cyst on CT- Will need outpatient follow-up renal ultrasound
Essential HTN--cont losartan for now
thrush--mycelex lozenges
DVT prophylaxis- SCDs
CODE STATUS--Full code
[2025-10-03 23:41] VITALS: BP 149/82
[2025-10-04] MEDS: COMPAZINE 10 MG IV (00:05)
[2025-10-04 07:00] VITALS: BP 181/99
[2025-10-04] MEDS: COZAAR 50 MG PO (07:29)
[2025-10-04] MEDS: MOTRIN 600 MG PO (07:29)
[2025-10-04] MEDS: MYCELEX TROCHE 10 MG PO ×2 (07:29→11:08)
[2025-10-04] MEDS: FLAGYL 500 MG 100 IV (07:30)
--- NOTE | 2025-10-04 07:35 | W.PN.GS2 ---
Addendum entered and electronically signed by Haider Barraza MD 10/04/25 11:07:
I was physically present and personally performed the garcia portions of the surgical evaluation and/or procedure with the resident. I discussed the findings, reviewed the resident�s note, and confirmed the medical decision-making. I provided direct
supervision as required and agree with the assessment and plan as documented with the following additions/corrections:
Overall patient reports feels as though is ready for discharge
Left lower quadrant discomfort but likely related to the presence of her drains but no significant residual pain.
Tolerating p.o. intake, passing flatus and has had bowel movements.
AFVSS
NAD AAO x 3
ABD: Soft, mild tenderness at drain exit sites but otherwise abdominal examination is otherwise nontender. No rebound rigidity or guarding.
IR drains in place with predominantly serous fluid. Not feculent, not bilious and no significant residual purulence.
A/P: 60-year-old female with sigmoid diverticulitis complicated by contained intra-abdominal perforation with abscess now status post IR drain x 2.
As patient comfortable with current drain management okay for discharge from surgical standpoint with both IR drains in place.
Outpatient IR tube studies will be arranged for next week to evaluate for residual abscess component and/or communication with sigmoid colon
Would treat with an additional 7-day course of oral antibiotics (Levaquin Flagyl which she has tolerated well in the past) as most recent source control with last IR drain was on 10/02/2025
Subsequent outpatient follow-up with myself for ongoing care and long-term diverticulitis management
Low residue diet
Original Note:
Today's Communication / Plan
-
Discharge planning
Assessment / Plan
-
Assessment: This is a 60 y/o female with pmhx of diverticulitis who developed lower abdominal pain on 09/18/2025 accompanied by nausea and vomiting with loose stools, leading to poor oral intake who presented to the ED on 09/23 and was found to have
sigmoid diverticulitis complicated by likely perforation with localized peritonitis based upon CT scan, now with drains x2 (Post-drainage day 7 for drain one, post drainage day 1 for drain two).
Plan:
Perforated Sigmoid Diverticulitis
-CT Scan 09/23: Findings of acute perforated sigmoid diverticulitis with small volume free air underlying the right hemidiaphragm. Additionally extensive inflammatory changes along the sigmoid colon as well as a bilobed gas and fluid containing
collection measuring approximately 4.9 x 2.6 cm along the sigmoid colon extending towards the left pelvis/adnexa.
-CT scan 09/26: Inflammatory changes/stranding associated with proximal sigmoid diverticulitis improved in comparison to recent prior study. HOWEVER, accompanying crescentic abnormal focal fluid collection suggesting contained perforation/abscess
slightly increased in length, as detailed above. Cannot exclude involvement of the left adnexa. No free air.
-CT scan 10/01: Status post percutaneous drainage catheter placement with collapse of the anterior component of the sigmoid peridiverticular abscess. However, there is a persistent posterior abscess component which has increased slightly in size.
Persistent inflammatory changes of the sigmoid colon are otherwise noted, slightly improved. No free air. No bowel obstruction. No other significant change.
-S/p drains x2, first drain placed 8 days ago (09/26), 2nd drain placed 2 days ago (10/02)
-WBC count normalized two days ago, remained normal yesterday.
-Patient continues to have persistent vomiting episodes overnight. She does currently have anti-nausea medications onboard, last received around midnight. She attributes this to Flagyl, which she has been on since the start of her hospitalization
-Continue low residue diet. Discussed importance of low fiber in her diet and avoidance of foods that are high in fiber, as well as stopping her metamucil supplement
-Continue IR drain with daily flushes
-Continue IV antibiotics
-Will plan to leave both drains in place for outpatient drain study and removal next week at the same time.
-Recommend VNA on discharge as patient will be going home with at least the newest drain placed yesterday
-Recommend 5 additional days of oral antibiotics upon discharge
-Recommend starting Miralax tomorrow, as low fiber diet may lead to constipation
Subjective Data
-
Date of Service: October 04, 2025
Patient reports that last night she tolerated low residue diet well without any nausea or vomiting for dinner. Several hours later, however, she began to experience nausea and vomiting again. She describes the nausea as clear liquid, and attributes
it to the Flagyl. This has happened to her several nights in a row now. She does not usually have episodes of nausea and vomiting overnight like this. She had some reported left lower quadrant pain which she localizes to her drains, but this
resolved later in the morning
Objective Data
-
Intake and Output
10/03/25 10/04/25 10/05/25
06:59 06:59 06:59
Intake Total 513 / 513 120 / 120
Output Total 15 / 15 0 / 0
Balance 498 / 498 120 / 120
Intake:
Oral fluids 480 / 480 120 / 120
Amount instilled into Drain ( 33 / 33
Total)
Left Abdomen A 5 / 5
Left Abdomen B 28 / 28
Output:
Drain Output (Total) 15 / 15 0 / 0
Left Abdomen A 5 / 5 0 / 0
Left Abdomen B 10 / 10 0 / 0
Other:
Number of approximated MODERATE 2
amounts of urine
Number of approximated LARGE 1
amounts of urine
Vital Signs
Temp Pulse Resp BP Pulse Ox
98.4 F 86 18 149/82 96
10/03/25 23:41 10/03/25 23:41 10/03/25 23:41 10/03/25 23:41 10/03/25 23:41
Calcium 8.9 mg/dl (8.4-10.2) 10/03/25 09:27
Total Bilirubin 0.8 mg/dl (0.2-1.3) 09/23/25 10:06
AST 13 U/L (14-36) L 09/23/25 10:06
ALT 11 U/L (0-35) 09/23/25 10:06
Alkaline Phosphatase 111 U/L (38-126) 09/23/25 10:06
Total Protein 7.6 g/dl (6.3-8.2) 09/23/25 10:06
Albumin 4.2 g/dl (3.5-5.0) 09/23/25 10:06
Physical Exam
-
General: Alert, oriented, no distress
Abdomen: Soft, nontender. The abdomen is free of rashes or lesions. There are two clean, bandaged drains present in the lower quadrant, one more midline and one lateral towards the left side. The drain site cannot be visualized due to the bandages.
Patient localizes tenderness to under the two bandages. Both drains contain a small amount of serous liquid, with the older drain being more red in color
Patient has a retana catheter: No
Patient has a central line: No
[2025-10-04 08:07] LABS: Hematocrit 43.3 % (37.0-47.0); Hemoglobin 14.6 g/dL (12.0-16.0); Mean Corp Hgb Conc. 33.7 g/dL (33.0-37.0); Mean Corpuscular Volume 89.5 fL (81.0-99.0); Platelet Count 423 10^3/uL (130-400); Red Cell Dist. Width 13.6 % (11.5-14.5)
--- NOTE | 2025-10-04 08:43 | W.PN.HOSP.TC ---
Addendum entered and electronically signed by Yazmin Holman MD 10/04/25 14:47:
I saw and evaluated the patient independently. I reviewed and discussed the resident�s note and agree with findings and plan as documented by Dr. Montague.
GENERAL: well developed, well nourished, obese female in no apparent distress
HEENT: NC/AT--thrush
HEART: regular rate and rhythm, +S1, +S2, not tachycardic
LUNGS : clear to auscultation bilaterally
ABDOM: soft, tender bilateral lower quadrants with guarding, nondistended, + bowel sounds--SARATH drain in place
EXT: no cyanosis, clubbing, or edema
NEUROLOGIC: grossly intact
acute sigmoid diverticulitis complicated by perforation and localized peritonitis (does not meet sepsis criteria by new guidelines)--with associated pain, n/v--follow leukocytes, much improved--cont oral levoquin/flagyl for 7 more days--drain
culture grew yeast (Raquel) and coag neg staph-apprec ID--in addition to 7 more days of Levaquin and Flagyl, adding fluconazole for 7 more days and linezolid for 7 more days--tolerating low residue--appec surgery--pain meds--antiemetics--repeat CT
scans were followed--and second drain in place--apprec IR/surgery
Renal Cyst on CT- Will need outpatient follow-up renal ultrasound
Essential HTN--cont losartan for now
thrush--mycelex lozenges
DVT prophylaxis- SCDs
CODE STATUS--Full code
cleared for D/C by all parties involved
Original Note:
Today's Communication/Plan
-
Discharge on PO medication.
Fu with Primary care, GI outpatient.
ID for Abx/Raquel
Assessment / Plan
Assessment / Plan
Ms Menjivar is a 60 year old female presented 10 days ago [09/25/2025] on account of 4-5 days of abdominal pain, poor appetite and 3 days of subjective fevers, dyspepsia and nausea with occasional vomiting.
Being managed conservatively for perforated sigmoid diverticulitis.
1) Perforated sigmoid diverticulitis
-Acute sigmoid diverticulitis complicated by perforation and localized peritonitis (does not meet sepsis criteria by new guidelines)
-General Surgery following, appreciate recommendation. For continued conservative management.
-Recommends discharge and fu on outpatient.
-CT abdomen
09/23/2025
Findings of acute perforated sigmoid diverticulitis with small volume free air underlying the right hemidiaphragm. Additionally extensive inflammatory changes along the sigmoid colon as well as a bilobed gas and fluid containing collection
measuring approximately 4.9 x 2.6 cm along the sigmoid colon extending towards the left pelvis/adnexa.
09/26/2025
Inflammatory changes/stranding associated with proximal sigmoid diverticulitis improved in comparison to recent prior study. HOWEVER, accompanying crescentic abnormal focal fluid collection suggesting contained perforation/abscess slightly increased
in length, as detailed above. Cannot exclude involvement of the left adnexa. No free air.
10/01/2025
Status post percutaneous drainage catheter placement with collapse of the anterior component of the sigmoid peridiverticular abscess. However, there is a posterior abscess component noted, measuring approximately 4.4 cm AP by 3.4 cm transverse.
Previous corresponding measurements of 4.3 x 2.3 cm. This contains fluid as well as gas and secondary air-fluid level.
Persistent inflammatory changes of the sigmoid colon are otherwise noted, slightly improved.
No free air. No bowel obstruction. No other significant change.
-Percutaneous drainage 09/26/2025 (8 days ago) of left pelvic abscess.
Sarath drain in place, draining minimal fluid.
-Had a 2nd IR- Drain of the posterior fluid collection 2 days ago 10/02/2025.
Appreciate IR input
CT guided placement of second drain into more lateral component of diverticular abscess
- 8.5F drain placed with 5-10 mL of gas and purulent fluid aspirated.
- Drain is very deep, approximately 15 cm. I do worry that it could retract/become dislodged with time.
-Culture yielded Raquel Albicans.
-ID Consultation
2) Elevated blood pressure
Previous h/o hypertension, 25yrs ago, treated for 1 month with Bystolic.
Currently on Losartan 50mg
Blood pressure is seen to be under control per chart today.
3) Thrush
On PO mycelex
4) Right renal complex cyst
Will require follow-up with urology in office.
Will need surveillance us imaging.
Code status- full code
DVT PPX
care plan discussed with surgery
Anticipated Discharge: Today
Subjective/Interval History
-
Date of Service: October 04, 2025
Met lying in bed
Had another episode of Vomiting early this morning.
Still having regular, daily bowel movement, slighlty more formed.
Objective Data
-
Labs:
Laboratory Results
10/04/25
06:43
WBC 10.3
Hgb 14.6
Hct 43.3
Plt Count 423 H D
Sodium Pending
Potassium Pending
Chloride Pending
Carbon Dioxide Pending
BUN Pending
Creatinine Pending
Glucose Pending
Calcium Pending
Vital Signs:
Vital Signs
Temp Pulse Resp BP Pulse Ox
98.4 F 86 18 149/82 96
10/03/25 23:41 10/03/25 23:41 10/03/25 23:41 10/03/25 23:41 10/03/25 23:41
I&O
10/03/25 10/04/25 10/05/25
06:59 06:59 06:59
Intake Total 513 / 513 120 / 120
Output Total 15 / 15 0 / 0
Balance 498 / 498 120 / 120
Review of Systems
-
History Source: Patient
All other systems: Reviewed and negative
Physical Exam
-
General: Well Developed
HEENT: Normocephalic, Atraumatic and Other (Whitish coating on tongue, reducing)
Respiratory: Clear to Auscultation
Cardiac: Regular Rhythm and S1/S2
GI: Soft, Nontender, Nondistended, Normal Bowel Sounds and Other (Both SARATH drain sites covered with dressing, clean and dry. Both draining minimal pink fluid)
Musculoskeletal: No Edema
Skin: Warm and Dry
Neuro: Awake, Alert and Oriented
Hematologic / Lymphatic: Other
Psych: Calm
Data Reviewed
-
Labs: Labs Reviewed by me, Discussed with Physician and Discussed with Patient
[2025-10-04 08:54] LABS: Blood Urea Nitrogen 10 mg/dl (7-17); Calcium 9.0 mg/dl (8.4-10.2); Carbon Dioxide 26 mmol/L (22-30); Chloride 101 mmol/L (98-107); Estimated Creatinine Clearance 122 ml/min; Glucose 100 mg/dl (70-99); Potassium 3.7 mmol/L (3.5-5.1); Sodium 137 mmol/L (135-145); eGFR > 60.00
[2025-10-04 11:14] VITALS: BP 112/65
--- NOTE | 2025-10-04 13:14 | CON.ID ---
Consultation
-
Date/Time Consultation Requested: 10/04/25 11:41
Date/Time Consultation Performed: 10/04/25 13:16
Requesting Provider: Dr Montague
Performing Provider: Dr Jones
Reason for Consultation: intraabdominal abscess
Chief Complaint / Past History
Chief Complaint
Abdominal pain associate with nausea vomiting, loose stool
History of Present Illness
Ms Menjivar is a 60 year old female with history of diverticulitis x1 who presented here 09/23 - 12 day ago - for a 5 day course of abdominal pain, nausea, vomiting, loose stools, poor appetite, T 100.4 and chills. Denied: headache, dizziness, chest
pain, shortness of breath, dysuria.
Since arrival here she was initially afebrile, bp stable, wbc intially 19.4, hgb 15.9, plt 310, na 139, cr 0.7, glucose 120, t bili 0.8, ast 13, alt 11, alk phos 111, UA no pyuria, 09/23 CT showed perforated diverticulitis, extensive inflammatory
changes along the sigmoid colon as well as a bilobed gas and fluid containing collection measuring approximately 4.9 x 2.6 cm along the sigmoid colon extending towards the left pelvis/adnexa. she was initially placed on ceftriaxone and
metronidazole. She was switched by the hospitalist to levofloxacin and metronidazole, she was seen by general surgery she has repeat CT on 09/26 showing slight increase in the collection in length, later same day 09/26 she has percutaneous drainage
with 7 ccs of blood tinged purulent fluid obtained and a drainage catheter placed, that culture was finalized negative, 10/01 Since prior examination, a percutaneous drainage catheter has been placed. The coiled tip is situated within the previously
noted anterior component of an abscess cavity, which has collapsed. However, there is a posterior abscess component noted, measuring approximately 4.4 cm AP by 3.4 cm transverse. Previous corresponding measurements of 4.3 x 2.3 cm. This contains
fluid as well as gas and secondary air-fluid level. 10/02 she had a second drain placed into the posterior portion of the collection 5 ccs of purulent fluid was removed and culture grew C albicans and CONS - CONS not yet IDd
Past History
Additional Past Medical History:
Diverticulitis, kidney stone
Past Surgical History: None
Allergy History:
Penicillins Allergy (Verified 09/23/25 09:54)
Unknown
sulfamethoxazole (From Bactrim) Allergy (Verified 09/23/25 09:54)
Rash
trimethoprim (From Bactrim) Allergy (Verified 09/23/25 09:54)
Rash
Medications Reviewed: Yes
Social History
Tobacco: Smoker
Alcohol: Occasional
Drug: None
Family History
Family History: Not Pertinent
Review of Systems
Review of Systems
Constitutional: Reports No Symptoms
EENT: Reports No Symptoms
Respiratory: Reports No Symptoms
Cardiac: Reports No Symptoms
Abdomen/GI: Reports Abdominal Pain, Nausea, Vomiting and Diarrhea
: Reports No Symptoms
Musculoskeletal: Reports No Symptoms
Skin: Reports No Symptoms
Neurological: Reports No Symptoms
Endocrine: Reports No Symptoms
Hematologic/Lymphatic: Reports No Symptoms
Psych: Reports No Symptoms
Vital Signs
Temp Pulse Resp BP Pulse Ox
98.1 F 93 18 112/65 96
10/04/25 07:00 10/04/25 11:14 10/04/25 07:00 10/04/25 11:14 10/04/25 07:00
Physical Exam
Physical Exam
Constitutional: No Acute Distress
Cardiovascular: Regular Rate and S1/S2; Negative Murmur or Rub
Pulmonary: Clear and Symmetric; Negative Wheezes, Rales or Rhonchi
Gastrointestinal: Soft, Non Tender, Non Distended and Normal Bowel Sounds
Skin: Warm and Dry; Negative Rash or Jaundice
Lines: Other (drain x2 in place one with scant serousanginous fluid and one with scant serous fluid)
Lab / Diagnostic Study Results
10/04/25 06:43
10/04/25 06:43
Abs Immat Gran (auto) 0.2 10^3/uL (0-0.05) H 09/23/25 10:06
Absolute Neuts (auto) 16.5 10^3/uL (1.4-6.5) H 09/23/25 10:06
Absolute Lymphs (auto) 1.3 10^3/uL (1.2-3.4) 09/23/25 10:06
Absolute Monos (auto) 1.3 10^3/uL (0.1-0.6) H 09/23/25 10:06
Absolute Basos (auto) 0.1 10^3/uL (0-0.2) 09/23/25 10:06
Immature Gran % 0.8 % (0-0.5) H 09/23/25 10:06
Neutrophils % 85.1 % (42.2-75.2) H 09/23/25 10:06
Lymphocytes % 6.7 % (20.5-51.1) L 09/23/25 10:06
Monocytes % 6.9 % (1.7-9.3) 09/23/25 10:06
Eosinophils % 0.1 % (0-6) 09/23/25 10:06
Basophils % 0.4 % (0-2) 09/23/25 10:06
Lactic Acid Cancelled 09/23/25 15:15
Ur Squamous Epith Cells >30 /LPF (Few) 09/23/25 10:18
Microbiology Results
Micro:
10/02/25 13:05 Wound Culture - Preliminary
Abdomen Raquel albicans
Gram Stain - Preliminary
09/26/25 17:00 Wound Culture - Final
Abdomen No growth
Gram Stain - Final
09/23/25 10:18 Urine Culture - Final
Urine
Assessment / Plan
Perforated diverticulitis with intraabdominal abscess
leukocytosis - resolved
thrombocytosis
Thrush
Reported allergy to penicillin - unknown
Class II obesity
- s/p 12 days of levofloxacin and metronidazole; surgery recommending another 7 days
- 10/02 culture with C albicans and moderate CONS
- Qtc 405, recheck LFTs
- add fluconazole 400 mg PO qday x 7 days, can stop mycelex
- add linezolid 600 mg PO BID x 7 days for the CONS - unknown if methacillin resistant or not, asked lab to get ID/sensi
- please use alternative pain medication to tramadol while on linezolid
- drain management per surgery
- follow up with surgery
Care Review
Plan reviewed with: Physician (Dr Montague)
--- NOTE | 2025-10-04 14:05 | W.DCSUMMARY ---
Addendum entered and electronically signed by Yazmin Holman MD 10/04/25 16:37:
Read, reviewed, and agree. See same day progress note for additional details. Time spent coordinating care, DC planning, review of DC plan of care with resident, transition of care, review of records in EMR, med rec, consults, notes, d/w
consultants, nursing, family, and CM = 33 minutes
Original Note:
Discharge Summary
Discharge Data
Date of Admission: 09/23/25
Date of Discharge: 10/04/25
-
Pending Results: Yes (Liver function test)
Hospital Course
Discharging Physician :
Clari Fulton MD, Yazmin Holman MD
Disposition :
Home with home health
Primary care physician :
Tashi Rahman
Principal Discharge diagnosis :
Acute sigmoid diverticulitis complicated by perforation and localized peritonitis
Essential hypertension
Oral thrush
Right renal complex cyst
CT guided abscess drainage X 2
Chronic Discharge diagnosis :
Diverticulitis,
Kidney stone
Hospital Course :
60-year-old female with past medical history for diverticulitis and kidney stones who presented to the [facility] ED 09/23/2025 on account of a 5-day history of poor oral intake, nausea, vomiting, abdominal pain, and loose stools.
She also endorsed fever and chills with a temp of 100.4.
On presentation to the ED, she was well-appearing and in no obvious distress, her abdomen with moderate tenderness to palpation, guarding, no rebound tenderness or distention.
Her vital signs were stable.
Initial investigations done showed leukocytosis, with neutrophilia, Abd-p CT showed evidence of colonic inflammation, perforation, and punctate collection.
She had discussion with the surgical team regarding the option of urgent operative intervention versus close monitoring with supportive care, IV antibiotics and serial abdominal examinations and was managed conservatively.
She initially received ceftriaxone, was converted to Levaquin, metronidazole, and was placed on clotrimazole for oral thrush.
During her hospital stay she required [address] scan guided drain of localized fluid collection done on 09/26/2025, 09/23/1925, and OSWALDO retained drainage with the second yielding Raquel albicans growth.
Her blood pressure was also noted to be elevated in this hospital stay, was optimized with losartan 50 mg daily.
An incidental right renal complex cyst was also found on CT scan and she will require outpatient follow-up with urology.
Following symptomatic improvement and normalization of her white count, she has been discharged home on oral antibiotics per ID; levofloxacin, metronidazole, linezolid, and fluconazole for 7 days.
She has been discharged home with visiting nurses for drain care and require outpatient follow-up for tube studies within the next week to evaluate for residual abscess component and/or communication with sigmoid colon.
She has to follow-up with general surgery: for ongoing care and long-term diverticulitis management.
Important imaging findings :
ABD Pelvic CT Scan
09/23/2025
Findings of acute perforated sigmoid diverticulitis with small volume free air underlying the right hemidiaphragm. Additionally extensive inflammatory changes along the sigmoid colon as well as a bilobed gas and fluid containing collection
measuring approximately 4.9 x 2.6 cm along the sigmoid colon extending towards the left pelvis/adnexa.
There is a 9 mm complex cyst along the lower pole the right kidney which appears increased in size from prior. A follow-up nonemergent renal ultrasound should BE considered.
09/26/2025
Inflammatory changes/stranding associated with proximal sigmoid diverticulitis improved in comparison to recent prior study. HOWEVER, accompanying crescentic abnormal focal fluid collection suggesting contained perforation/abscess slightly
increased in length, as detailed above. Cannot exclude involvement of the left adnexa. No free air.
Stable subcentimeter complex cystic lesion along the lower pole the right kidney, indeterminate.
10/01/2025
Status post percutaneous drainage catheter placement with collapse of the anterior component of the sigmoid peridiverticular abscess. However, there is a persistent posterior abscess component which has increased slightly in size.
Persistent inflammatory changes of the sigmoid colon are otherwise noted, slightly improved.
No free air. No bowel obstruction. No other significant change.
Procedure findings :
CT guided left pelvic abscess drainage.
09/26/2025
7 cc blood-tinged purulent appearing fluid aspirated during procedure. Sample sent for microbiology.
10/02/2025
5 mL gas and purulent fluid aspirated during procedure. Sample sent for microbiology.
Discharge Plan
-
Patient Disposition: Home with Home Care
Discharge Diagnosis/Procedures: Acute sigmoid diverticulitis complicated by perforation and localized peritonitis
Essential hypertension
Oral thrush
Right renal complex cyst
CT guided abscess drainage X 2
Condition: Fair
Diet: As tolerated and Low Fiber
Activity: As tolerated
Driving Restrictions: Not until seen by your Dr
Bathing Restrictions: OK to Shower
Other Services: VN
Wound Care: See handout for instructions on drain care. Flush daily with 10ml of sterile saline. In lateral drain may need twice daily flushes.
Referrals:
Tashi Restrepo DO [Family Provider, Family Practice] - in less than 1 week
Haider Barraza MD [Active, Surgical]
Referral Note: Schedule an appointment with the Surgeon's office for continued care and keno terminal operator management of Diverticulitis within 2 weeks
Toni Machuca Jr., MD [Active, Urology]
Referral Note: please call for a new patient appointment for follow up of Right renal complex cyst
Additional Discharge Medication Instructions: STOP taking Metamucil
You were placed anti biotic medications Fluconazole, Levofloxacin, Linezolid and Metronidazole, take these medications for 2 days starting tomorrow and stop 10/11/2024
You were placed anti-hypertensive medication; Losartan, you are to continue to take this medication daily by mouth and to follow up with your Primary care provider for a new diagnosis of hypertension, you are to call your primary care provider if
you feel light headed or dizzy or your blood pressure is <100/60mmHg .
You have been prescribed Compazine tablets, take this daily at night for nausea for the next 5 days and call your primary care provider if you have problems with your bladder or GI function.
Interventional radiology team will reach out to you regarding drain care and removal.
Prescriptions:
New
sodium chloride 0.9 % (flush) [Normal Saline Flush] Syringe
10 ml intra-catheter DAILY Qty: 250 0RF
Rx Instructions:
flush drain daily
sodium chloride 0.9 % (flush) [Normal Saline Flush] Syringe
5 ml intra-catheter DAILY Qty: 100 0RF
losartan 50 mg Tablet
50 mg PO DAILY Qty: 30 0RF
fluconazole 200 mg Tablet
400 mg PO DAILY Qty: 7 0RF
metronidazole 500 mg Tablet
500 mg PO BID Qty: 14 0RF
prochlorperazine maleate 10 mg Tablet
10 mg PO HS Qty: 5 0RF
linezolid 600 mg Tablet
600 mg PO BID Qty: 14 0RF
levofloxacin 750 mg Tablet
750 mg PO DAILY Qty: 7 0RF
Discontinued
Metamucil Packet
1 packet PO DAILY
Discharge Orders:
Discharge Patient (As Directed); Ordered 10/04/25
Ordered By: Kirstin Montague
Discharge Date and Time
Print Language: YEMENI
[2025-10-04 14:12] LABS: ALT (SGPT) 11 U/L (0-35); AST (SGOT) 15 U/L (14-36); Albumin 3.5 g/dl (3.5-5.0); Alkaline Phosphatase 63 U/L (38-126); Total Protein 6.9 g/dl (6.3-8.2)
[2025-10-04] MEDS: ZYVOX 600 MG PO (14:36)
[2025-10-04] MEDS: LEVAQUIN 750 MG PO (14:36)
--- NOTE | 2025-10-04 14:57 | CM ---
Patient seen at bedside with physician. Patient plan is for discharge home with [facility] patient has drains in place and will be followed by surgery. Patient has family supports for discharge transportation. CM will continue to follow for discharge
planning needs.
Plan; home with [facility]
[2025-10-04] MEDS: DIFLUCAN 400 MG PO (15:12)
== END 2025-10-04 15:44 | disposition home health service (06) | DRG 391 ==
LOC: 4 WEST ACU 13:23
PROVIDERS: Emergency Medicine; Radiology Diagnostic Radiology; Radiology Vascular & Interventional Radiology; Registered Nurse; Surgery; ADMITTING PHYSICIAN Internal Medicine; ATTENDING PHYSICIAN Internal Medicine; CONSULT PHYSICIAN Student in an Organized Health Care Education/Training Program; CONSULT PHYSICIAN Surgery; EMERGENCY PHYSICIAN Student in an Organized Health Care Education/Training Program; FAMILY PHYSICIAN Family Medicine
PROC: 0J9C30Z Drainage of Pelvic Region Subcutaneous Tissue and Fascia with Drainage Device, Percutaneous Approach (ICD-10-PCS; 2025-09-26)
DX: K57.20 Diverticulitis of large intestine with perforation and abscess without bleeding (principal); K65.1 Peritoneal abscess; B37.0 Candidal stomatitis; I10 Essential (primary) hypertension; Z87.442 Personal history of urinary calculi; F17.210 Nicotine dependence, cigarettes, uncomplicated; Z88.0 Allergy status to penicillin; Z88.2 Allergy status to sulfonamides; Z88.1 Allergy status to other antibiotic agents; E66.813 Obesity, class 3; Z79.899 Other long term (current) drug therapy; Z68.37 Body mass index [BMI] 37.0-37.9, adult
CPT/HCPCS: 49406; 74177; 80048; 80053; 80076; 81003; 81015; 83605; 83690; 85025; 85027; 87070; 87086; 87147; 87205; 93005; 96361; 96365; 96375; 99152; 99153; 99284; Q9967